=== PATIENT | female | born 1950 | race Caucasian/White ===

== ENCOUNTER → 2023-12-18 10:38 | Outpatient (REF) | payer OTHER, SELFPAY | LOC: DHCBC HW 10:38 | PROVIDERS: ATTENDING PHYSICIAN Internal Medicine Cardiovascular Disease; FAMILY PHYSICIAN Nurse Practitioner Adult Health | DX: I10 Essential (primary) hypertension (principal); I45.10 Unspecified right bundle-branch block | CPT/HCPCS: 93306 ==

== ENCOUNTER → 2024-02-20 07:23 | Outpatient (REF) | payer OTHER, SELFPAY | LOC: PAVMRI 07:23 | PROVIDERS: ATTENDING PHYSICIAN Nurse Practitioner Adult Health; FAMILY PHYSICIAN Nurse Practitioner Adult Health | DX: C7A.019 Malignant carcinoid tumor of the small intestine, unspecified portion (principal) | CPT/HCPCS: 74183; A9581 ==

== ENCOUNTER → 2024-03-14 10:09 | Outpatient (REF) | payer OTHER, SELFPAY | LOC: HWWDC 10:09 | PROVIDERS: ATTENDING PHYSICIAN Nurse Practitioner Adult Health | DX: Z12.31 Encounter for screening mammogram for malignant neoplasm of breast (principal) | CPT/HCPCS: 77063; 77067 ==

== ENCOUNTER 2024-03-23 17:17 | Inpatient (IN) | payer OTHER, SELFPAY ==
[2024-03-23 12:14] VITALS: BP 108/79
[2024-03-23 12:57] LABS: % Eosinophils 1.9 % (0-6); % Immature Granulocytes 1.7 % (0-0.5); % Lymphocytes 11.2 % (20.5-51.1); % Monocytes 12.2 % (1.7-9.3); Absolute Basophils 0.1 10^3/uL (0-0.2); Absolute Eosinophils 0.1 10^3/uL (0-0.7); Absolute Immature Granulocytes 0.1 10^3/uL (0-0.05); Absolute Lymphocytes 0.7 10^3/uL (1.2-3.4); Absolute Monocytes 0.7 10^3/uL (0.1-0.6); Absolute Neutrophils 4.2 10^3/uL (1.4-6.5); Hematocrit 21.6 % (37.0-47.0); Hemoglobin 7.2 g/dL (12.0-16.0); Mean Corp Hgb Conc. 33.3 g/dL (33.0-37.0); Mean Corpuscular Hgb 33.3 pg (27.0-31.0); Mean Platelet Volume 8.7 fL (7.4-10.4); Nucleated Red Blood Cells % 0 %; Platelet Count 300 10^3/uL (130-400); Red Blood Cell Count 2.16 10^6/uL (4.20-5.40); Red Cell Dist. Width 12.8 % (11.5-14.5); White Blood Cell Count 5.8 10^3/uL (4.8-10.8)
[2024-03-23 13:11] LABS: D-Dimer 3.07 ug/mlFEU (0.00-0.50)
[2024-03-23 13:12] LABS: Urine Albumin Trace (Neg - Trace); Urine Bilirubin 1+ (Negative); Urine Character Clear (Clear); Urine Color Amber; Urine Glucose Negative (Negative); Urine Ketone Trace (Negative); Urine Leukocyte 1+ (Negative); Urine Nitrite Negative (Negative); Urine Occult Blood Negative (Negative); Urine Specific Gravity 1.015 (<1.030); Urine Urobilinogen 1+ (Neg - 1+)
[2024-03-23 13:16] LABS: ALT (SGPT) 34 U/L (0-35); AST (SGOT) 65 U/L (14-36); Albumin 4.2 g/dl (3.5-5.0); Alkaline Phosphatase 61 U/L (38-126); Blood Urea Nitrogen 19 mg/dl (7-17); Carbon Dioxide 28 mmol/L (22-30); Chloride 98 mmol/L (98-107); Glucose 104 mg/dl (70-99); Potassium 4.3 mmol/L (3.5-5.1); Sodium 132 mmol/L (135-145); Total Bilirubin 2.1 mg/dl (0.2-1.3); Total Protein 6.6 g/dl (6.3-8.2); eGFR > 60.00
[2024-03-23 13:24] LABS: NT-proBNP 215 pg/ml; Troponin I 0.018 ng/ml
--- NOTE | 2024-03-23 13:44 | ED.GENMED ---
History of Present Illness
General
Chief Complaint: Urinary Symptoms
Time Seen by Provider: 03/23/24 12:31
Travel History
Have you had any contact with someone who has COVID-19?: No
Do you have any symptoms of coronavirus? Fever > 100 degrees, chills, cough, shortness of breath, sore throat, loss of taste or smell, muscle aches, or headache?: Yes
Symptoms:: SOB
History of Present Illness
History of Present Illness:
73-year-old female with history of metastatic neuroendocrine carcinoma presents the emergency department for evaluation of shortness of breath with exertion ongoing for the past 4 to 5 days. She is also noted dark urine for the past 3 to 4 days.
Reports mild suprapubic discomfort but denies any severe abdominal pain. No nausea, vomiting, dark tarry stools, or dennis colored stools. Denies any chest pain or leg swelling.
Past History
Past History
ED Past Medical History: Hypothyroidism and Other (migraines)
ED Past Surgical History: Orthopedic
Social History
Tobacco: Non-smoker
Personal:
Living: with family
Employment: Employed
Review of Systems
Review of Systems
Allergies reviewed?: Yes
All Other Systems: ROS reviewed and negative except as documented in HPI and ROS
Phy Exam
Physical Exam
Physical Exam:
GEN: Generally pale, no distress
Eyes: PERRLA, EOMs intact, no scleral icterus
HENT: NCAT, oral mucosa moist
Lungs: CTAB, no wheezes, rales, rhonchi, normal chest wall excursion
Cardiac: RRR, no M/R/G, no peripheral edema. Radial pulses 2+ bilat
Abdomen: S, NT, ND, NABS, no masses or hepatosplenomegaly
Neuro: AO x 3
MSK: No gross deformity or ecchymosis. No edema. No digital clubbing
Skin: No rashes, petechiae. No pallor, no jaundice
Psych: Calm, cooperative, proper hygiene
Course
Orders/Labs/Results
Orders:
Orders
03/23/24 12:42
Electrocardiogram (*1) Urgent
Reason for Study: Shortness of Breath
EKG- Treatment ONCE
CR Chest - 2 Views Urgent
Comment:
Reason For Exam: MCMANUS
03/23/24 12:45
Complete Blood Count/With Diff Urgent
Comprehensive Metabolic Panel Urgent
D-Dimer Urgent
Direct Bilirubin Urgent
Comment: ADD
Ferritin Urgent
Comment: ADD ON
Iron Urgent
NT-proBNP Urgent
PTT Urgent
Prothrombin Time Urgent
Comment: ADD
Total Iron Binding Urgent
Troponin I Urgent
03/23/24 13:01
Urinalysis Reflex To Culture Urgent
Date Specimen was Collected: 03/23/24
Time Specimen was Collected: 12:23
Urine Microscopic Reflex Cult Urgent
Urine Culture Urgent
MAEGAN Source: U
Specimen Description:
Date Specimen was Collected: 03/23/24
Time Specimen was Collected: 12:23
03/23/24 13:15
Type+Screen Urgent
03/23/24 13:26
Add On- LAB Urgent
Tests Added?: iron, TIBC, ferritin, transferrin
03/23/24 13:27
CT Pe/abd/pel W Urgent
Comment:
Reason For Exam: SOB, elevated D dimer, elevated T bili
03/23/24 13:44
Blood Bank Products [* Blood Bank Products] Urgent
Blood Bank Products: *Packed RBC Leuko(PRBC's)
Quantity: 1
Transfuse Today: Yes
Reason: Anemia
03/23/24 15:08
Add On- LAB Urgent
Tests Added?: direct bili
03/23/24 16:08
Add On- LAB Urgent
Tests Added?: pt/INR, ptt
03/23/24 16:18
Admit/Transfer Patient As Directed
Co-Sign Provider:
Level of Care: Inpatient admission
Assign to:: Medical/Surgical
Physician / Group: Dr Nolan
Diagnosis: Anemia
Reason for Hospitalization: pte p/w anemia, worsened from baseline
Expected length of stay greater than two midnights?: Yes
ELOS- Estimated Length of Stay in days: 2
I certify the patient meets the requirements for IP care: Yes
03/23/24 16:19
Code Status As Directed
Resuscitation Status: Full Code
03/23/24 16:20
HEMATOLOGY CONSULT Routine
Consulting Provider: Popeye Beltran
Was physician already notified: Yes
Reason for consult: Anemia eval
03/23/24 16:35
LDH Routine
03/23/24 16:36
Haptoglobin [S] Routine
03/23/24 16:38
B12 [Vitamin B12] Routine
Folate Routine
Reticulocyte Count Routine
03/23/24 18:00
H&H Q8H
03/24/24 02:00
H&H Q8H
03/24/24 06:00
LFT [[id number]] IN AM
Abnormal Lab Results
03/23/24 03/23/24 03/23/24
12:45 13:01 13:15
RBC 2.16 L 10^6/uL
(4.20-5.40)
Hgb 7.2 L g/dL
(12.0-16.0)
Hct 21.6 L %
(37.0-47.0)
MCV 100.0 H fL
(81.0-99.0)
MCH 33.3 H pg
(27.0-31.0)
Abs Immat Gran (auto) 0.1 H 10^3/uL
(0-0.05)
Absolute Lymphs (auto) 0.7 L 10^3/uL
(1.2-3.4)
Absolute Monos (auto) 0.7 H 10^3/uL
(0.1-0.6)
Immature Gran % 1.7 H %
(0-0.5)
Lymphocytes % 11.2 L %
(20.5-51.1)
Monocytes % 12.2 H %
(1.7-9.3)
D-Dimer 3.07 H ug/mlFEU
(0.00-0.50)
Sodium 132 L mmol/L
(135-145)
BUN 19 H mg/dl
(7-17)
Glucose 104 H mg/dl
(70-99)
% Saturation 53 H %
(20-50)
Ferritin 598.0 H ng/ml
(11.1-264.0)
Total Bilirubin 2.1 H mg/dl
(0.2-1.3)
Direct Bilirubin 0.6 H mg/dl
(0.0-0.4)
AST 65 H U/L
(14-36)
Urine Ketones Trace A
(Negative)
Urine Bilirubin 1+ A
(Negative)
Leukocyte Esterase Rfl 1+ A
(Negative)
Urine Bacteria (Reflex) Few A
(Negative)
Antibody Screen Positive A
(Negative)
03/23/24 12:45
03/23/24 12:45
Vital Signs
Initial and Last Documented VS:
Initial Vital Signs
Temp Pulse Resp BP Pulse Ox
98.1 F 94 18 108/79 96
03/23/24 12:14 03/23/24 12:14 03/23/24 12:14 03/23/24 12:14 03/23/24 12:14
Last Documented Vital Signs
Temp Pulse Resp BP Pulse Ox
98.1 F 78 18 100/63 100
03/23/24 12:14 03/23/24 17:33 03/23/24 17:33 03/23/24 17:33 03/23/24 17:33
MDM/Problems Addressed
MDM/Problems Addressed:
Patient with heme-negative stool on exam. Concern for likely hemolytic anemia given that his predominant direct she has associated hyperbilirubinemia. Would not expect her liver mass associated with her neuroendocrine cancer to be causing the
elevated bilirubin. Additionally she has noted to have numerous antibodies and will not be able to see the blood transfusion today. Will admit to the hospitalist service for further management hemoglobin trending
*Critical Care Note
Total Time (30-74mins, 75-104mins- exclusive of procedures): Not Applicable
ED Attending Note
-
Portions of this chart may have been created with voice recognition software.� Occasional wrong word or��sound alike� substitutions may have occurred due to the inherent limitations of voice recognition software.
Discharge Plan
Departure
Patient Disposition: Admit
Date of Disposition: 03/23/24
Time of Disposition: 16:11
Admit to: Med/Surg
Presentation/result/management discussed w/ accepting MD/DO: Hospitalist
Discharge Problem:
Symptomatic anemia, Hyperbilirubinemia
Interventions
Interventions:
*Risk Screen - Suicide Last Done: 03/23/24 12:20
*General Assessment Last Done: 03/23/24 12:14
*Neglect/Abuse Screening Last Done: 03/23/24 12:20
*ED COVID-19 Vaccine History Last Done: 03/23/24 12:14
ED-Female Genitourinary Assessment Last Done: 03/23/24 15:49
[2024-03-23 13:46] LABS: Urine Mucus Few
[2024-03-23 13:47] LABS: Urine Bacteria Few (Negative); Urine Red Blood Cell 0-2 /HPF (0-2); Urine White Cell 0-2 /HPF (0-5)
[2024-03-23 13:55] LABS: Total Iron Binding Capacity 300 ug/dl (265-497)
[2024-03-23 14:29] LABS: Iron 159 ug/dl (37-170); Percent Saturation 53 % (20-50)
[2024-03-23 15:49] VITALS: BMI 22.7
[2024-03-23 15:51] LABS: Direct Bilirubin 0.6 mg/dl (0.0-0.4)
--- NOTE | 2024-03-23 16:21 | HPS.HSE ---
Family Physician
-
Family Physician: Rosa Blackwood
Chief Complaint
-
Generalized weakness
History of Present Illness
Patient 73 years old female with history of hypothyroidism, migraine, metastatic neuroendocrine carcinoma presented to the hospital with generalized weakness and exertional dyspnea and found to have anemia. Patient had a recent viral upper
respiratory tract infection followed by generalized weakness, profound fatigue, dyspnea on exertion, and also noticed dark urine. She denies any chest pain. Denies any fever or chills. Denies any dysuria urgency or frequency. Denies abdominal
pain. She does have history of GI bleed in the past with no clear-cut etiology per patient report. At this time she denies any melena, hematemesis, hematochezia, or bright blood per rectum. Denies any new medications. She does follow-up as
outpatient with hematology oncology and she takes monthly shot for her neuroendocrine tumor and she took her medicine last month. In the ER, hemoglobin 7.2 MCV 100, last Hb was 11.8 back in 2017. Chest x-ray unremarkable for any acute
cardiopulmonary pathology, CT scan of the chest no evidence of PE, some pain, glass opacities nonspecific. CT scan of the abdomen and pelvis with contrast 3 lesions in the liver but no new lesions.
Medical History
Past Medical History
Past Medical History: Reports Other (Metastatic neuroendocrine tumor, rheumatoid Tritus, depression, osteoporosis, asthma, hypothyroidism, migraine, hypertension, depression.)
Past Surgical History: Reports Other (Hysterectomy, arthroscopy, small bowel resection in the past, cancerous liver tumors removed from the liver, tonsillectomy, left bunionectomy.)
Social History
Tobacco: Non-smoker
Alcohol: None
Drug: None
Family History
Family History: Not pertinent
Allergies / Home Medications
Allergies reflects when Allergies were last updated in [facility].
Home Medications with original date entered in [facility]
Allergy/Medication List:
Allergies
Allergy/AdvReac Type Severity Reaction Status Date / Time
seasonal Allergy nasal Uncoded 03/23/24 12:20
congestion
Home Medications
Calcium Citrate/Magnesium/D3 600 mg PO BID 05/03/17
Lactobacillus rhamnosus GG 15 billion cell sprinkle capsule (Culturelle) 1 ea PO DAILY 05/03/17
Losartan Potassium 50 mg PO DAILY 05/03/17
hydroxychloroquine 200 mg tablet 200 mg PO BID 05/03/17
sertraline 50 mg tablet 50 mg PO DAILY 05/03/17
ascorbic acid (vitamin C) 1,000 mg tablet (Vitamin C) 1,000 mg PO DAILY 03/23/24
cyanocobalamin (vitamin B-12) 1,000 mcg tablet (Vitamin B-12) 1,000 mcg PO DAILY 03/23/24
folic acid 1 mg tablet 1 mg PO DAILY 03/23/24
levothyroxine 137 mcg tablet 137 mcg PO DAILY 03/23/24
methotrexate sodium 2.5 mg tablet 17.5 mg PO TH 03/23/24
multivitamin 1 tab PO DAILY 03/23/24
Review of Systems
-
A 12 point ROS was completed and negative except as noted: Yes
Physical Exam
Vital Signs
Vital Signs
Temp Pulse Resp BP Pulse Ox
98.1 F 94 18 108/79 96
03/23/24 12:14 03/23/24 12:14 03/23/24 12:14 03/23/24 12:14 03/23/24 12:14
Physical exam:
General: Acutely ill
HEENT: Normocephalic, Atraumatic and Moist Mucous Membranes
Respiratory: Clear to Auscultation; Negative Wheezes, Rales or Rhonchi
Cardiac: Regular Rhythm and S1/S2
GI: Soft, Nontender and Nondistended. No hepatosplenomegaly
Musculoskeletal: No Clubbing, No Cyanosis and No Edema
Skin: No rash, no petechia or ecchymosis.
Neuro: Awake, Alert and Oriented
Psych: Calm
Physical Exam
General: Other
Laboratory Results
-
03/23/24 12:45
03/23/24 12:45
Laboratory Results
Total Bilirubin 2.1 mg/dl (0.2-1.3) H 03/23/24 12:45
AST 65 U/L (14-36) H 03/23/24 12:45
ALT 34 U/L (0-35) 03/23/24 12:45
Alkaline Phosphatase 61 U/L (38-126) 03/23/24 12:45
Troponin I 0.018 ng/ml 03/23/24 12:45
Impression/Plan
-
IMPRESSION:
Patient 73 years old female who came into the hospital with generalized weakness, dyspnea on exertion, and multiple other complaints likely related to symptomatic anemia. Very high in the differential possibility of hemolytic anemia due to recent
viral illness but needs to rule out other common etiologies as well. She also has neuroendocrine tumor. Patient is very high risk of increased morbidity mortality therefore she will need to be treated in the hospital accordingly and monitor for
toxicity.
Impression:
Symptomatic anemia, likely hemolytic anemia
Hyponatremia
Conditions prior to presentation:
Hypertension
Neuroendocrine metastatic tumor
Depression
Hypothyroidism
Rheumatoid arthritis
PLAN:
Consent for blood transfusion obtained in the ED.
Waiting for blood transfusion
Add LDH, reticulocyte count, haptoglobin current workup.
Hematology consult ([facility] texted hematology today)
Monitor hemoglobin closely
SCDs for DVT prophylaxis
CODE STATUS full code
Total time spent on today's encounter was 75 minutes which included time spent in counseling the patient/family regarding diagnosis and treatment plan as listed above, goals of care, and symptom management. Case was discussed with nursing staff,
specialists, and care coordinators/case management. All labs and imaging personally reviewed by me. Remainder the time spent in detailed review of previous records, lab data, imaging, and other medical provider documentation.
[2024-03-23 16:22] LABS: INR 1.06; PT 13.7 Sec (11.4-14.6)
[2024-03-23 16:23] LABS: APTT 23.4 Sec (23.4-35.0)
[2024-03-23 17:33] VITALS: BP 100/63
[2024-03-23 17:45] VITALS: BP 128/63; BMI 21.5
[2024-03-23 18:15] LABS: Hematocrit 19.1 % (37.0-47.0)
[2024-03-23 18:28] LABS: LDH 716 U/L (120-246)
[2024-03-23 18:34] LABS: Hemoglobin 6.6 g/dL (12.0-16.0)
[2024-03-23 18:53] LABS: Reticulocyte Count 4.2 % (0.4-2.8)
[2024-03-23 19:36] LABS: Folate > 20.0 ng/ml (2.76-20); Vitamin B12 790 pg/ml (239-931)
[2024-03-23] MEDS: OSCAL CAL 500 500 MG PO (21:00)
[2024-03-23] MEDS: COZAAR 100 MG PO (23:00)
[2024-03-24 00:09] VITALS: BP 113/63
[2024-03-24] MEDS: TYLENOL 650 MG PO (04:00)
[2024-03-24] MEDS: SYNTHROID 137 MCG PO (05:47)
[2024-03-24 06:00] VITALS: BMI 21.5
--- NOTE | 2024-03-24 06:09 | CON.ONC ---
Impression
Impression
Acute onset hemolytic anemia - Hgb drop of 7g since 03/06
Indirect Jefry positivity non-specific in pt with collagen vascular disease
No renal failure or thrombocytopenia to suggest TTP or other microangiopathic hemolysis such as TTP
Hydroxychloroquine has association with hemolysis in setting of G6PD def but she has been on this drug for some time without difficulty.
Plan
Plan
Please consult ID as infectious cause of hemolysis suspected.
Direct Jefry, EBV serologies, thin smear for babesiosis, mycoplasma serologies
Further w/u depending on outcome of direct Jefry.
Transfuse least incompatible blood.
Start empiric steroid.
Thank you for consult, will follow along with you.
Patient History
History of Present Illness
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 Roberts. She continues on monthly lanreotide, tolerating well. As of last visit, chromogranin A remained stable in the normal range at 40.1. MRI of the abdomen 02/20/24 c/w prior
liver ablation, two lesions c/w treated metastases. She also has a hsitory of RA managed with hydroxychloroquine and methotrexate, no recent disease flare, disease currently not too bad. Presented to ED 03/23/24 with generalized weakness and
exertional dyspnea and found to have anemia. Patient had a recent viral upper respiratory tract infection, which she reports she caught from her , followed by generalized weakness, profound fatigue, dyspnea on exertion, and also noticed dark
urine. She denies any chest pain. Denies any fever or chills. Denies any dysuria urgency or frequency. Denies abdominal pain. She does have history of GI bleed in the past with no clear-cut etiology per patient report. On admission she denied
any melena, hematemesis, hematochezia, or bright blood per rectum. In terms of new medications, she started Concerta about two months ago, was on it 1 month, then self D/C'd about three weeks ago since she felt it was interfering with her thyroid
function. Chest x-ray unremarkable for any acute cardiopulmonary pathology, CT scan of the chest no evidence of PE, ground glass opacities nonspecific. CT scan of the abdomen and pelvis with contrast showed few lesions in the liver but no new
lesions. In the ER, hemoglobin 6.6, MCV 100, compared with Hgb 13.2 on 03/06/24. Retic 4.2, Tbili 2.1, Dbili 0.6, LDH 716, haptoglobin pending. Indirect Jefry+.
Past-Medical/Surgical History
Past Medical History
Metastatic neuroendocrine tumor, rheumatoid arthritis, depression, osteoporosis, asthma, hypothyroidism, migraine, hypertension
Past Surgical History
Hysterectomy, arthroscopy, small bowel resection in the past, liver ablation for met carcinoid lesions, tonsillectomy, left bunionectomy
Social History
Tobacco: Non-smoker
Alcohol: None
Drug: None
Family History
Family History: Not pertinent
Patient Medication
�Medication �Instructions �Recorded �Confirmed �Last Taken �Type
Lactobacillus rhamnosus GG 15 1 ea PO DAILY 05/03/17 03/23/24 03/23/24 History
billion cell sprinkle capsule
(Culturelle)
calcium carbonate (Calcium 600) 600 mg PO BID ##0 05/03/17 03/23/24 03/23/24 History
hydroxychloroquine 200 mg tablet 200 mg PO DAILY 05/03/17 03/23/24 03/23/24 History
losartan 100 mg tablet 100 mg PO HS ##0 05/03/17 03/23/24 03/22/24 History
sertraline 50 mg tablet 50 mg PO DAILY 05/03/17 03/23/24 03/23/24 History
ascorbic acid (vitamin C) 1,000 mg 1,000 mg PO DAILY 03/23/24 03/23/24 03/23/24 History
tablet (Vitamin C)
cyanocobalamin (vitamin B-12) 1,000 mcg PO DAILY 03/23/24 03/23/24 03/23/24 History
1,000 mcg tablet (Vitamin B-12)
folic acid 1 mg tablet 1 mg PO DAILY 03/23/24 03/23/24 03/23/24 History
levothyroxine 137 mcg tablet 137 mcg PO DAILY 03/23/24 03/23/24 03/23/24 History
methotrexate sodium 2.5 mg tablet 17.5 mg PO TH 03/23/24 03/23/24 03/20/24 History
multivitamin 1 tab PO DAILY 03/23/24 03/23/24 03/23/24 History
Active Medications
Generic Name Dose Route Start Last Admin
Trade Name Freq PRN Reason Stop Dose Admin
Bisacodyl 10 mg 03/23/24 17:52
Bisacodyl 10 Mg Rectal Suppository RECTAL 04/20/24 17:51
[id number] PRN
constipation
Calcium Carbonate 500 mg 03/23/24 20:00 03/23/24 21:00
Calcium Carbonate 500 Mg Tablet PO 04/20/24 19:59 500 mg
BID GAB Administration
Cyanocobalamin 1,000 mcg 03/24/24 08:00
Cyanocobalamin 1,000 Mcg Tablet PO 04/21/24 07:59
DAILY GAB
Folic Acid 1 mg 03/24/24 08:00
Folic Acid 1 Mg Tablet PO 04/21/24 07:59
DAILY GAB
Hydroxychloroquine Sulfate 200 mg 03/24/24 08:00
Hydroxychloroquine 200 Mg Tablet PO 04/21/24 07:59
DAILY GAB
Lactobacillus/Bifidobacterium 1 cap 03/24/24 08:00
Lactobac/Bifidobac (Visbiome) PO 04/21/24 07:59
DAILY GAB
Levothyroxine Sodium 137 mcg 03/24/24 06:00 03/24/24 05:47
Levothyroxine 137 Mcg Tablet PO 04/21/24 05:59 137 mcg
DAILY@0600 GAB Administration
Losartan Potassium 100 mg 03/23/24 22:00 03/23/24 23:00
Losartan 100 Mg Tablet PO 04/20/24 21:59 100 mg
HS GAB Administration
Multivitamins Therapeutic 1 tablet 03/24/24 08:00
Multivitamin Tablet PO 04/21/24 07:59
DAILY GAB
Polyethylene Glycol 17 grams 03/23/24 17:52
Polyethylene Glycol Powder 17 Grams Packet PO 04/20/24 17:51
DAILYPRN PRN
constipation
Senna/Docusate Sodium 1 tablet 03/23/24 17:52
Docusate W/Senna (Rosaura-Colace) Tablet PO 04/20/24 17:51
BIDPRN PRN
constipation
Sertraline HCl 50 mg 03/24/24 08:00
Sertraline 50 Mg Tablet PO 04/21/24 07:59
DAILY GAB
Sodium Chloride 0 flush 03/23/24 20:00
Sodium Chloride 0.9% (Flush) Syringe IV 04/20/24 19:59
PER PROTOCOL GAB
Review of Systems
-
History Source: Patient and Records
All Other Systems: Reviewed and Negative
Constitutional: Reports No Symptoms
EENT: Reports No Symptoms
Respiratory: Reports No Symptoms
Cardiac: Reports No Symptoms
GI: Reports No Symptoms
Breast: Reports No Symptoms
: Reports No Symptoms
Musculoskeletal: Reports No Symptoms
Skin: Reports No Symptoms
Neuro: Reports No Symptoms
Endocrine: Reports No Symptoms
Hematologic/Lymphatic: Reports No Symptoms
Allergy / Immunology: Reports No Symptoms
Psych: Reports No Symptoms
Physical Exam
-
General: Well Developed and Well Nourished
HEENT: Jaundice and Moist Mucous Membranes
Cardiology: Normal Sinus Rhythm, S1 and S2
Pulmonary: Clear; Negative Wheezes or Rales
GI: Soft and Other (non-tender); Negative Spleenomegaly
Musculoskeletal: No Clubbing, No Cyanosis and No Edema
Extremities: No C/C/E
Neurology: Non Focal and No Lateralizing Symptoms
Skin: Warm and Dry; Negative Rash
Hematologic / Lymphatic: No Lymphadenopathy
Psych: Calm and Intact Judgement/Insight
Labs
Lab Results
WBC 5.8 10^3/uL (4.8-10.8) 03/23/24 12:45
RBC 2.16 10^6/uL (4.20-5.40) L 03/23/24 12:45
Hgb 6.6 g/dL (12.0-16.0) L* 03/23/24 18:03
Hct 19.1 % (37.0-47.0) L* 03/23/24 18:03
MCV 100.0 fL (81.0-99.0) H 03/23/24 12:45
MCH 33.3 pg (27.0-31.0) H 03/23/24 12:45
MCHC 33.3 g/dL (33.0-37.0) 03/23/24 12:45
RDW 12.8 % (11.5-14.5) 03/23/24 12:45
Plt Count 300 10^3/uL (130-400) 03/23/24 12:45
MPV 8.7 fL (7.4-10.4) 03/23/24 12:45
Abs Immat Gran (auto) 0.1 10^3/uL (0-0.05) H 03/23/24 12:45
Absolute Neuts (auto) 4.2 10^3/uL (1.4-6.5) 03/23/24 12:45
Absolute Lymphs (auto) 0.7 10^3/uL (1.2-3.4) L 03/23/24 12:45
Absolute Monos (auto) 0.7 10^3/uL (0.1-0.6) H 03/23/24 12:45
Absolute Eos (auto) 0.1 10^3/uL (0-0.7) 03/23/24 12:45
Absolute Basos (auto) 0.1 10^3/uL (0-0.2) 03/23/24 12:45
Immature Gran % 1.7 % (0-0.5) H 03/23/24 12:45
Neutrophils % 72.0 % (42.2-75.2) 03/23/24 12:45
Lymphocytes % 11.2 % (20.5-51.1) L 03/23/24 12:45
Monocytes % 12.2 % (1.7-9.3) H 03/23/24 12:45
Eosinophils % 1.9 % (0-6) 03/23/24 12:45
Basophils % 1.0 % (0-2) 03/23/24 12:45
Creatinine 0.6 mg/dL (0.6-1.0) 03/23/24 12:45
Vital Signs
Vital Signs
Temp Pulse Resp BP Pulse Ox
99.0 F 80 18 113/63 95
03/24/24 00:09 03/24/24 00:09 03/24/24 00:09 03/24/24 00:09 03/24/24 00:09
[2024-03-24 06:47] LABS: Mean Corp Hgb Conc. 33.5 g/dL (33.0-37.0); Mean Corpuscular Hgb 33.3 pg (27.0-31.0); Mean Corpuscular Volume 99.5 fL (81.0-99.0); Mean Platelet Volume 9.1 fL (7.4-10.4); Platelet Count 321 10^3/uL (130-400); Red Blood Cell Count 2.07 10^6/uL (4.20-5.40); Red Cell Dist. Width 12.6 % (11.5-14.5); White Blood Cell Count 6.9 10^3/uL (4.8-10.8)
[2024-03-24 06:59] LABS: Hematocrit 20.6 % (37.0-47.0); Hemoglobin 6.9 g/dL (12.0-16.0)
[2024-03-24 07:01] LABS: Hematocrit 20.5 % (37.0-47.0); Hemoglobin 6.9 g/dL (12.0-16.0)
[2024-03-24 07:02] LABS: ALT (SGPT) 29 U/L (0-35); AST (SGOT) 59 U/L (14-36); Albumin 4.4 g/dl (3.5-5.0); Alkaline Phosphatase 57 U/L (38-126); Blood Urea Nitrogen 15 mg/dl (7-17); Calcium 9.9 mg/dl (8.4-10.2); Carbon Dioxide 29 mmol/L (22-30); Chloride 99 mmol/L (98-107); Direct Bilirubin 0.7 mg/dl (0.0-0.4); Estimated Creatinine Clearance 51 ml/min; Glucose 119 mg/dl (70-99); Potassium 4.3 mmol/L (3.5-5.1); Sodium 135 mmol/L (135-145); Total Bilirubin 2.5 mg/dl (0.2-1.3); Total Protein 6.8 g/dl (6.3-8.2); eGFR > 60.00
[2024-03-24 07:30] VITALS: BP 117/61
[2024-03-24] MEDS: ZOLOFT 50 MG PO (08:29)
[2024-03-24] MEDS: THERAGRAN 1 TABLET PO (08:29)
[2024-03-24] MEDS: VISBIOME 1 CAP PO (08:29)
[2024-03-24] MEDS: FOLVITE 1 MG PO (08:29)
[2024-03-24] MEDS: PLAQUENIL 200 MG PO (08:29)
[2024-03-24] MEDS: VITAMIN B-12 1000 MCG PO (08:29)
[2024-03-24] MEDS: OSCAL CAL 500 500 MG PO ×2 (08:29→22:11)
--- NOTE | 2024-03-24 09:17 | W.PN.HOSP.TC ---
Today's Communication/Plan
-
Plan for blood transfusion. Monitor hemoglobin
Assessment / Plan
Assessment / Plan
Physical exam:
General: Acutely ill
HEENT: Normocephalic, Atraumatic and Moist Mucous Membranes
Respiratory: Clear to Auscultation; Negative Wheezes, Rales or Rhonchi
Cardiac: Regular Rhythm and S1/S2
GI: Soft, Nontender and Nondistended. No hepatosplenomegaly
Musculoskeletal: No Clubbing, No Cyanosis and No Edema
Skin: No rash, no petechia or ecchymosis.
Neuro: Awake, Alert and Oriented
Psych: Calm
A/P:
Impression:
Symptomatic anemia, likely hemolytic anemia
Hyponatremia, improved
Conditions prior to presentation:
Hypertension
Neuroendocrine metastatic tumor
Depression
Hypothyroidism
Rheumatoid arthritis
PLAN:
Consent for blood transfusion obtained in the ED.
Waiting for blood transfusion still today.
Added LDH, reticulocyte count, haptoglobin, Jefry test current workup. All test indicative of hemolytic anemia.
Hematology consult appreciated
Plan to start steroids by hematology
Monitor hemoglobin closely
SCDs for DVT prophylaxis
CODE STATUS full code
Anticipated Discharge: 24 - 48 hours
Subjective/Interval History
-
Date of Service: March 24, 2024
Patient with generalized weakness. Denies chest pain or shortness of breath. No bleeding
Objective Data
-
Labs:
Laboratory Results
03/24/24 03/24/24 03/24/24
05:59 05:59 05:59
WBC 6.9
Hgb 6.9 L* 6.9 L*
Hct 20.6 L* 20.5 L*
Plt Count 321
Sodium 135
Potassium 4.3
Chloride 99
Carbon Dioxide 29
BUN 15
Creatinine 0.7
Glucose 119 H
Calcium 9.9
Total Bilirubin 2.5 H
AST 59 H
ALT 29
Alkaline Phosphatase 57
Vital Signs:
Vital Signs
Temp Pulse Resp BP Pulse Ox
98.0 F 74 17 117/61 100
03/24/24 07:30 03/24/24 07:30 03/24/24 07:30 03/24/24 07:30 03/24/24 07:30
I&O
03/23/24 03/24/24 03/25/24
06:59 06:59 06:59
Intake Total 220 / 220
Balance 220 / 220
[2024-03-24] MEDS: MOTRIN 600 MG PO (09:42)
[2024-03-24] MEDS: DELTASONE 60 MG PO (09:43)
--- NOTE | 2024-03-24 11:44 | CM ---
Patient seen bedside, initial assessment completed. Patient resides with her , daughter, son in law, and two grandchildren in a multiple story home, 2 steps to enter. Patient denies DME, VN, or SNF history. Patient reports PCP Anne Amanda,
pharmacy [facility], confirms prescription coverage. Patient denies any food insecurities. CM will continue to follow for all discharge planning needs.
Plan; home no needs likely.
[2024-03-24 15:15] VITALS: BP 109/56
[2024-03-24] MEDS: COZAAR 100 MG PO (22:11)
[2024-03-24 22:32] VITALS: BP 114/60
[2024-03-24 22:50] VITALS: BP 120/71
[2024-03-25] VITALS (7 sets, daily range): BP systolic 121–130; BP diastolic 61–73; BMI 21.4
[2024-03-25 06:07] LABS: Mean Corp Hgb Conc. 34.5 g/dL (33.0-37.0); Mean Corpuscular Hgb 32.9 pg (27.0-31.0); Mean Corpuscular Volume 95.3 fL (81.0-99.0); Mean Platelet Volume 8.9 fL (7.4-10.4); Platelet Count 275 10^3/uL (130-400); Red Blood Cell Count 2.13 10^6/uL (4.20-5.40); Red Cell Dist. Width 14.4 % (11.5-14.5); White Blood Cell Count 9.6 10^3/uL (4.8-10.8)
[2024-03-25] MEDS: SYNTHROID 137 MCG PO (06:15)
[2024-03-25 06:22] LABS: Hematocrit 20.3 % (37.0-47.0)
[2024-03-25] MEDS: VISBIOME 1 CAP PO (08:25)
[2024-03-25] MEDS: OSCAL CAL 500 500 MG PO ×2 (08:25→20:41)
[2024-03-25] MEDS: PLAQUENIL 200 MG PO (08:25)
[2024-03-25] MEDS: THERAGRAN 1 TABLET PO (08:25)
[2024-03-25] MEDS: FOLVITE 1 MG PO (08:25)
[2024-03-25] MEDS: DELTASONE 60 MG PO (08:25)
[2024-03-25] MEDS: ZOLOFT 50 MG PO (08:26)
[2024-03-25] MEDS: VITAMIN B-12 1000 MCG PO (08:26)
--- NOTE | 2024-03-25 09:10 | W.PN.HOSP.TC ---
Today's Communication/Plan
-
Blood transfusion. ID eval by hematology requested.
Assessment / Plan
Assessment / Plan
Physical exam:
General: No acute distress
HEENT: Normocephalic, Atraumatic and Moist Mucous Membranes
Respiratory: Clear to Auscultation; Negative Wheezes, Rales or Rhonchi
Cardiac: Regular Rhythm and S1/S2
GI: Soft, Nontender and Nondistended. No hepatosplenomegaly
Musculoskeletal: No Clubbing, No Cyanosis and No Edema
Skin: No rash, no petechia or ecchymosis.
Neuro: Awake, Alert and Oriented
Psych: Calm
A/P:
Impression:
Warm autoimmune hemolytic anemia
Hyponatremia, improved
Conditions prior to presentation:
Hypertension
Neuroendocrine metastatic tumor
Depression
Hypothyroidism
Rheumatoid arthritis
PLAN:
Plan for more blood transfusion today (at least the least incompatible possible)
Status post blood transfusion and hemoglobin up to 7 today (hemoglobin as low as 6.6)
All tests indicative of hemolytic anemia. KAMILAH positive, C3 complement and IgG
Plan for flow cytometry
Hematology consult and follow-up appreciated
Initiated on steroids by hematology
Hematology requests ID consultation
Monitor hemoglobin closely
SCDs for DVT prophylaxis
CODE STATUS full code
Anticipated Discharge: Within 24 hours
Subjective/Interval History
-
Date of Service: March 25, 2024
Patient denies any melena hematemesis hematochezia or epistaxis. Denies any fevers or chills.
Objective Data
-
Labs:
Laboratory Results
03/25/24
05:11
WBC 9.6
Hgb 7.0 L
Hct 20.3 L*
Plt Count 275
Vital Signs:
Vital Signs
Temp Pulse Resp BP Pulse Ox
98.1 F 75 18 122/62 95
03/25/24 07:30 03/25/24 07:30 03/25/24 07:30 03/25/24 07:30 03/25/24 07:30
I&O
03/24/24 03/25/24 03/26/24
06:59 06:59 06:59
Intake Total 220 / 220 370 / 370
Balance 220 / 220 370 / 370
Review of Systems
-
All other systems: Reviewed and negative
--- NOTE | 2024-03-25 10:46 | W.PN.ONC ---
Today's Communication / Plan
-
continue steroids
PPI
Will check flow cytometry
Infectious work-up
Monitor CBC and CMP daily
transfuse as indicated
Impression
Impression
warm AIHA
Acute onset hemolytic anemia - Hgb drop of 7g since 03/06
KAMILAH positive (both IgG and C3)
No renal failure or thrombocytopenia to suggest TTP or other microangiopathic hemolysis such as TTP
Hydroxychloroquine has association with hemolysis in setting of G6PD def but she has been on this drug for some time without difficulty.
Plan
Plan
Continue steroids. Will give PPI for GI ppx
Continue folic acid
Will check flow cytometry
Please consult ID as infectious cause of hemolysis suspected
Pending - EBV serologies, thin smear for babesiosis, mycoplasma serologies
Transfuse least incompatible blood.
Subjective/Objective
Subjective/Objective
no complaints at rest
Vital Signs:
Vital Signs
Temp Pulse Resp BP Pulse Ox
98.1 F 75 18 122/62 95
03/25/24 07:30 03/25/24 07:30 03/25/24 07:30 03/25/24 07:30 03/25/24 08:35
Lab Results:
Laboratory Data
WBC 9.6 10^3/uL (4.8-10.8) 03/25/24 05:11
Hgb 7.0 g/dL (12.0-16.0) L 03/25/24 05:11
Plt Count 275 10^3/uL (130-400) 03/25/24 05:11
PT 13.7 Sec (11.4-14.6) 03/23/24 12:45
INR 1.06 03/23/24 12:45
APTT 23.4 Sec (23.4-35.0) 03/23/24 12:45
eGFR > 60.00 03/24/24 05:59
[2024-03-25] MEDS: PROTONIX 20 MG PO (11:15)
[2024-03-25 11:21] LABS: Haptoglobin <10 mg/dL (30-200)
[2024-03-25 13:49] LABS: EBV-NA IgG >600.0 U/mL (0.0-21.9); EBV-VCA IgM Antibodies <10.0 U/mL (0.0-43.9)
--- NOTE | 2024-03-25 16:43 | PTCARENOTE ---
Pt received 1 unit PRBC without difficulty. No reaction noted.
--- NOTE | 2024-03-25 16:55 | CON.ID ---
Consultation
-
Date/Time Consultation Requested: 03/25/2024 1320
Date/Time Consultation Performed: 03/25/2024 1620
Requesting Provider: Dr. Nolan
Performing Provider: Dr. Geiger
Reason for Consultation: Hemolytic anemia; ?Infectious etiology
Chief Complaint / Past History
History of Present Illness
Tj Jose is a 73-year-old female being evaluated at the request of Dr. Nolan in regards to hemolytic anemia and possible infectious etiology. History is obtained from chart review, along with patient interview.
The patient reports that she was in her usual state of health until early last week when she reports she developed a slight cold with associated slight cough (without sputum production), some rhinorrhea and some congestion. She notes that her
had a similar clinical syndrome several days before. Around this time she began to feel mild shortness of breath, but over the next several days it seemed to increase. Ultimately she presented to the emergency room secondary to fatigue and
shortness of breath, along with dark urine over the prior several days. She was found to have marked anemia.
She denies any recent fevers or chills. She denies any headache. She denies any abdominal pain, nausea, vomiting or diarrhea. She has not eaten out anywhere recently. She denies any tick bites. She has both a cat and dog, who are both noted to
be well. She has not had any travel outside the local area. She reports that she likes to perform yard work, but she has never seen a tick on her.
She denies any new medications. She notes no recent antibiotics.
Past History
Additional Past Medical History:
Metastatic neuroendocrine carcinoma
Hypothyroidism
Migraines
Rheumatoid arthritis
Depression
Osteoporosis
Asthma
HTN
Additional Past Surgical History:
Hysterectomy
Small bowel resection
Ambulation of met carcinoid hepatic lesions
Tonsillectomy
Left bunionectomy
Allergy History:
seasonal Allergy (Uncoded 03/23/24 12:20)
nasal congestion
Medications Reviewed: Yes
Current Antibiotics:
None
Social History
Tobacco: Non-Smoker
Alcohol: None
Drug: None
Personal:
Living: With Family
Employment: Retired
Family History
Family History: Not Pertinent
Review of Systems
Vital Signs
Temp Pulse Resp BP Pulse Ox
99.0 F 65 18 121/69 96
03/25/24 16:32 03/25/24 16:32 03/25/24 16:32 03/25/24 16:32 03/25/24 15:00
Physical Exam
Physical Exam
Constitutional: No Acute Distress, Comfortable and Non-toxic
Head: Normocephalic
Eyes: Pupils Equal, Pupils Round, No Conjunctival Hemorrhage and Sclera Anicteric
Pharynx: Benign
Oral: No Thrush and No Ulcers
Cardiovascular: S1/S2; Negative S3/S4 or Murmur
Pulmonary: Clear and Non Labored; Negative Wheezes, Rales or Rhonchi
Gastrointestinal: Soft, Non Tender, Non Distended, Normal Bowel Sounds, No Rebound and No Guarding
Extremities: Negative Edema, Cyanosis, Erythema, Splinter Hemorrhage or Venous Insufficiency
Neurological: Awake, Alert and Oriented
Psychological: Calm
Lab / Diagnostic Study Results
03/25/24 16:00
03/24/24 05:59
Abs Immat Gran (auto) 0.1 10^3/uL (0-0.05) H 03/23/24 12:45
Absolute Neuts (auto) 4.2 10^3/uL (1.4-6.5) 03/23/24 12:45
Absolute Lymphs (auto) 0.7 10^3/uL (1.2-3.4) L 03/23/24 12:45
Absolute Monos (auto) 0.7 10^3/uL (0.1-0.6) H 03/23/24 12:45
Absolute Basos (auto) 0.1 10^3/uL (0-0.2) 03/23/24 12:45
Immature Gran % 1.7 % (0-0.5) H 03/23/24 12:45
Neutrophils % 72.0 % (42.2-75.2) 03/23/24 12:45
Lymphocytes % 11.2 % (20.5-51.1) L 03/23/24 12:45
Monocytes % 12.2 % (1.7-9.3) H 03/23/24 12:45
Eosinophils % 1.9 % (0-6) 03/23/24 12:45
Basophils % 1.0 % (0-2) 03/23/24 12:45
PT 13.7 Sec (11.4-14.6) 03/23/24 12:45
INR 1.06 03/23/24 12:45
Ur Squamous Epith Cells 3-5 /LPF (Few) 03/23/24 13:01
Microbiology Results
Micro:
03/24/24 05:59 Blood Parasites Smear - Final
Blood/Venous
03/23/24 13:01 Urine Culture - Final
Urine
Assessment / Plan
Symptomatic hemolytic anemia of unclear etiology
Elevated total bilirubin and direct bilirubin
Elevated AST
Elevated LDH
Metastatic neuroendocrine carcinoma
Hypothyroidism
Migraines
Rheumatoid arthritis
Depression
Osteoporosis
Asthma
HTN
Recommendations:
Await pending mycoplasma serology, although if exposure is recent, both acute and convalescent serologies will need to be performed to establish the diagnosis.
Babesia / malaria smear negative.
No hx of travel making malaria, [place] fever and Cronin's disease (Bartinella bacilliformis) less likely.
Monitor for fever. At present, little evidence of acute infectious etiology requiring antibiotic therapy.
Trend white count. Trend hemoglobin.
[2024-03-25] MEDS: COZAAR 100 MG PO (20:41)
[2024-03-26 00:59] LABS: Mycoplasma pneumoniae IgG 1.21 U/L (<=0.09); Mycoplasma pneumoniae-IgM 0.17 U/L (<=0.76)
[2024-03-26] MEDS: SYNTHROID 137 MCG PO (05:06)
[2024-03-26 06:00] VITALS: BMI 21.8
[2024-03-26 07:00] VITALS: BP 137/74
--- NOTE | 2024-03-26 07:44 | W.PN.ONC2 ---
Today's Communication / Plan
-
Continue prednisone 60 mg daily with taper depending on response beginning after about 7 days.
Continue folic acid.
Once hemoglobin is >10, begin to taper prednisone by 10 mg weekly until she is weaned off.
I am comfortable with discharge and close outpatient follow-up.
Impression
Impression
warm AIHA
Acute onset hemolytic anemia - Hgb drop of 7g since 03/06
KAMILAH positive (both IgG and C3)
No renal failure or thrombocytopenia to suggest TTP or other microangiopathic hemolysis such as TTP
Hydroxychloroquine has association with hemolysis in setting of G6PD def but she has been on this drug for some time without difficulty.
Plan
Plan
Continue steroids + PPI for GI ppx
Continue folic acid.
Flow cytometry ordered.
Appreciate ID consultation. Currently no clear-cut classic infectious etiology but still could be viral.
Babesia / malaria smear negative.
Transfuse least incompatible blood for Hgb <7 PRN
Subjective/Objective
Chief Complaint
ACS Heme
Subjective
Patient feeling well. Offers no complaints. On oral steroids.
Vital Signs:
Vital Signs
Temp Pulse Resp BP Pulse Ox
98.3 F 65 16 121/61 98
03/25/24 23:10 03/25/24 23:10 03/25/24 23:10 03/25/24 23:10 03/25/24 23:10
Lab Results:
Laboratory Data
WBC 9.6 10^3/uL (4.8-10.8) 03/25/24 05:11
Hgb Cancelled 03/25/24 16:00
Plt Count 275 10^3/uL (130-400) 03/25/24 05:11
PT 13.7 Sec (11.4-14.6) 03/23/24 12:45
INR 1.06 03/23/24 12:45
APTT 23.4 Sec (23.4-35.0) 03/23/24 12:45
eGFR > 60.00 03/24/24 05:59
Physical Exam
HEENT: No Jaundice
Cardiology: S1 and S2
Pulmonary: Clear
GI: Soft
[2024-03-26] MEDS: OSCAL CAL 500 500 MG PO (08:10)
[2024-03-26] MEDS: FOLVITE 1 MG PO (08:10)
[2024-03-26] MEDS: DELTASONE 60 MG PO (08:10)
[2024-03-26] MEDS: THERAGRAN 1 TABLET PO (08:11)
[2024-03-26] MEDS: PLAQUENIL 200 MG PO (08:11)
[2024-03-26] MEDS: VITAMIN B-12 1000 MCG PO (08:11)
[2024-03-26] MEDS: ZOLOFT 50 MG PO (08:11)
[2024-03-26] MEDS: VISBIOME 1 CAP PO (08:11)
[2024-03-26] MEDS: PROTONIX 20 MG PO (08:11)
[2024-03-26 08:18] LABS: ALT (SGPT) 24 U/L (0-35); AST (SGOT) 35 U/L (14-36); Albumin 3.8 g/dl (3.5-5.0); Alkaline Phosphatase 54 U/L (38-126); Blood Urea Nitrogen 22 mg/dl (7-17); Carbon Dioxide 31 mmol/L (22-30); Chloride 100 mmol/L (98-107); Estimated Creatinine Clearance 51 ml/min; Glucose 90 mg/dl (70-99); Potassium 4.1 mmol/L (3.5-5.1); Sodium 136 mmol/L (135-145); Total Bilirubin 1.4 mg/dl (0.2-1.3); eGFR > 60.00
[2024-03-26 08:19] LABS: % Basophils 0.5 % (0-2); % Eosinophils 0.7 % (0-6); % Immature Granulocytes 4.7 % (0-0.5); % Lymphocytes 7.3 % (20.5-51.1); % Monocytes 10.8 % (1.7-9.3); Absolute Eosinophils 0.1 10^3/uL (0-0.7); Absolute Immature Granulocytes 0.4 10^3/uL (0-0.05); Absolute Lymphocytes 0.7 10^3/uL (1.2-3.4); Absolute Neutrophils 6.8 10^3/uL (1.4-6.5); Hematocrit 25.5 % (37.0-47.0); Mean Corp Hgb Conc. 35.3 g/dL (33.0-37.0); Mean Corpuscular Hgb 35.2 pg (27.0-31.0); Mean Corpuscular Volume 99.6 fL (81.0-99.0); Mean Platelet Volume 8.8 fL (7.4-10.4); Platelet Count 259 10^3/uL (130-400); Red Blood Cell Count 2.56 10^6/uL (4.20-5.40); Red Cell Dist. Width 16.9 % (11.5-14.5); White Blood Cell Count 8.9 10^3/uL (4.8-10.8)
--- NOTE | 2024-03-26 08:40 | W.PN.HOSP.TC ---
Today's Communication/Plan
-
Discharge planning today
Assessment / Plan
Assessment / Plan
Physical exam:
General: No acute distress
HEENT: Normocephalic, Atraumatic and Moist Mucous Membranes
Respiratory: Clear to Auscultation; Negative Wheezes, Rales or Rhonchi
Cardiac: Regular Rhythm and S1/S2
GI: Soft, Nontender and Nondistended. No hepatosplenomegaly
Musculoskeletal: No Clubbing, No Cyanosis and No Edema
Skin: No rash, no petechia or ecchymosis.
Neuro: Awake, Alert and Oriented
Psych: Calm
A/P:
Impression:
Warm autoimmune hemolytic anemia
Hyponatremia, improved
Conditions prior to presentation:
Hypertension
Neuroendocrine metastatic tumor
Depression
Hypothyroidism
Rheumatoid arthritis
PLAN:
Hemoglobin up to 9 today
Hotel Assistant General Manager cleared her for discharge today.
Status post blood transfusion
All tests indicative of hemolytic anemia. KAMILAH positive, C3 complement and IgG
Flow cytometry pending.
Hematology consult and follow-up appreciated
Initiated on steroids by hematology
Hematology requested ID consultation and appreciated ID input.
Monitor hemoglobin closely
SCDs for DVT prophylaxis
CODE STATUS full code
Anticipated Discharge: Today
Subjective/Interval History
-
Date of Service: March 26, 2024
Patient feels well today.
Objective Data
-
Labs:
Laboratory Results
03/26/24
07:10
WBC 8.9
Hgb 9.0 L D
Hct 25.5 L
Plt Count 259
Sodium 136
Potassium 4.1
Chloride 100
Carbon Dioxide 31 H
BUN 22 H
Creatinine 0.7
Glucose 90
Calcium 9.0
Total Bilirubin 1.4 H D
AST 35
ALT 24
Alkaline Phosphatase 54
Vital Signs:
Vital Signs
Temp Pulse Resp BP Pulse Ox
98.1 F 62 18 137/74 97
03/26/24 07:00 03/26/24 07:00 03/26/24 07:00 03/26/24 07:00 03/26/24 07:00
I&O
03/25/24 03/26/24 03/27/24
06:59 06:59 06:59
Intake Total 370 / 370 1160 / 1160
Balance 370 / 370 1160 / 1160
--- NOTE | 2024-03-26 10:09 | W.PN.ID1 ---
Date of Service
Date of Service: March 26, 2024
Today's Communication
Monitor off antibiotics.
Assessment / Plan
Symptomatic hemolytic anemia of unclear etiology
Elevated total bilirubin and direct bilirubin
Elevated AST
Elevated LDH
Metastatic neuroendocrine carcinoma
Hypothyroidism
Migraines
Rheumatoid arthritis
Depression
Osteoporosis
Asthma
HTN
Recommendations:
Mycoplasma and EBV serology consistent with old disease
Babesia / malaria smear negative.
No hx of travel making malaria, [place] fever and Cronin's disease (Bartinella bacilliformis) less likely.
Monitor for fever. At present, little evidence of acute infectious etiology requiring antibiotic therapy.
Trend white count. Trend hemoglobin.
����������������������������������������������������������
Chief Complaint
-: Other (Hemolytic anemia)
Subjective / Review of Systems
Patient seen and examined. Overall feels well. Reports that she recalls starting a new probiotic approximately 2 weeks prior to the onset of symptomatology.
Review of Systems: No Fever and No Chills
Vital Signs / Physical Exam
Vital Signs
Vital Signs
Temp Pulse Resp BP Pulse Ox
98.1 F 62 18 137/74 97
03/26/24 07:00 03/26/24 07:00 03/26/24 07:00 03/26/24 07:00 03/26/24 07:00
Physical Exam
Constitutional: No Acute Distress, Comfortable and Non-toxic
Eyes: Sclera Anicteric
Cardiovascular: S1/S2; Negative S3/S4
Pulmonary: Non Labored
Gastrointestinal: Soft, Non Tender and Non Distended
Neurological: Awake and Alert
Psychological: Calm
Objective Data
Lab Data
Lab Results
03/26/24 07:10
03/26/24 07:10
PT 13.7 Sec (11.4-14.6) 03/23/24 12:45
INR 1.06 03/23/24 12:45
APTT 23.4 Sec (23.4-35.0) 03/23/24 12:45
Estimated Creat Clear 51 ml/min 03/26/24 07:10
Total Bilirubin 1.4 mg/dl (0.2-1.3) H D 03/26/24 07:10
AST 35 U/L (14-36) 03/26/24 07:10
ALT 24 U/L (0-35) 03/26/24 07:10
Alkaline Phosphatase 54 U/L (38-126) 03/26/24 07:10
Most recent labs reviewed.
Micro Results:
03/24/24 05:59 Blood Parasites Smear - Negative
Blood/Venous
03/23/24 13:01 Urine Culture - Final
Urine
Mycoplasma : IgG positive / IgM negative
EBV : capsid antigen IgG positive / capsid antigen IgM negative
Nuclear antigen IgG positive/nuclear antigen IgM negative
Care Review
Plan reviewed with: Nurse and Physician (Hospitalist)
--- NOTE | 2024-03-26 10:34 | CM ---
Patient seen beside, reports no needs to CM. IMM reviewed, signed, placed in chart. Patient reports she has a lot of support at home, has transportation home when stable. CM will continue to follow for discharge planning needs.
Plan; home no needs when stable.
--- NOTE | 2024-03-26 12:22 | W.DCSUMMARY ---
Discharge Summary
Discharge Data
Date of Admission: 03/23/24
Date of Discharge: 03/26/24
-
Pending Results: No
Hospital Course
Patient is 73 years old female with history of metastatic neuroendocrine tumor, rheumatoid arthritis, presented to the hospital with severe anemia. Patient had a workup of her anemia and reveals warm or immune hemolytic anemia. She was treated
with blood transfusions and she was started on steroids. Her KAMILAH was positive both IgG and C3. Hematology consulted. She was also noticed to be on hydrochloroquine that hematology noticed that she has been on this medication for quite some time
and usually hemolysis in the settings are associated with G6PD deficiency which does not appear to be the case. She also had some flow cytometry that will be follow-up as outpatient. ID was consulted and no current infectious etiology was found
although very suspicion for a viral syndrome triggered this event. Her mycoplasma and EBV serology consistent with all disease and Babesia and malaria smears were negative. Hematology cleared her for discharge today. Her hemoglobin up to 9 today.
She will be continued on steroids as outpatient and further dosing and adjustment per hematology. She will be discharged in stable condition today.
Discharge duration: 35 minutes
Discharge Plan
-
Patient Disposition: Home (Routine Discharge)
Discharge Diagnosis/Procedures: Warm autoimmune hemolytic anemia. Rheumatoid arthritis. Metastatic neuroendocrine tumor.
Diet: Low Cholesterol
Activity: As tolerated
Blood Work: Please PCP to order CBC, CMP within 1 week
Referrals:
Computer Sciences Professor, provider [Other] (Please see over the next 2 to 4 weeks)
Rosa Blackwood DO [Family Provider] - in less than 1 week
Dylon Alegria MD [Active] - in one to two weeks
Prescriptions:
New
prednisone 20 mg tablet
60 mg PO DAILY Qty: 50 0RF
Rx Instructions:
60 mg p.o. daily for 7 days. Then 40 mg p.o. daily for 7 days. Then 20 mg daily for 7 days.
pantoprazole [Protonix] 40 mg tablet,delayed release (DR/EC)
40 mg PO DAILY Qty: 30 0RF
Continued
calcium carbonate [Calcium 600] 600 mg calcium (1,500 mg) Tablet
600 mg PO BID Qty: 0
hydroxychloroquine 200 MG tablet
200 mg PO DAILY
losartan 100 mg Tablet
100 mg PO HS Qty: 0
sertraline 50 MG tablet
50 mg PO DAILY
Culturelle 1 EACH capsule, sprinkle
1 ea PO DAILY
multivitamin Tablet
1 tab PO DAILY
levothyroxine 137 mcg Tablet
137 mcg PO DAILY
ascorbic acid (vitamin C) [Vitamin C] 1,000 mg Tablet
1,000 mg PO DAILY
cyanocobalamin (vitamin B-12) [Vitamin B-12] 1,000 mcg Tablet
1,000 mcg PO DAILY
methotrexate sodium 2.5 mg Tablet
17.5 mg PO TH
folic acid 1 mg Tablet
1 mg PO DAILY
Discharge Orders:
Discharge Patient (As Directed); Ordered 03/26/24
Ordered By: Roshan Nolan
Discharge Date and Time
Discharge Date/Time: 03/26/24 13:32
Print Language: LAO
[2024-03-26 12:53] VITALS: BP 122/51
[2024-03-28 06:36] LABS: Number Of Markers 26 markers; Source Blood
== END 2024-03-26 13:32 | disposition home or self-care (01) | DRG 809 ==
LOC: 4 WEST ACU 17:17
PROVIDERS: Internal Medicine Hematology & Oncology; Physician Assistant; ADMITTING PHYSICIAN Hospitalist; CONSULT PHYSICIAN Internal Medicine Hematology & Oncology; CONSULT PHYSICIAN Internal Medicine Infectious Disease; EMERGENCY PHYSICIAN Emergency Medicine; FAMILY PHYSICIAN Family Medicine
PROC: 30233N1 Transfusion of Nonautologous Red Blood Cells into Peripheral Vein, Percutaneous Approach (ICD-10-PCS; 2024-03-24)
DX: D59.11 Warm autoimmune hemolytic anemia (principal); C7A.8 Other malignant neuroendocrine tumors; C7B.8 Other secondary neuroendocrine tumors; E87.1 Hypo-osmolality and hyponatremia; M06.9 Rheumatoid arthritis, unspecified; E03.9 Hypothyroidism, unspecified; I10 Essential (primary) hypertension; M81.0 Age-related osteoporosis without current pathological fracture; J45.909 Unspecified asthma, uncomplicated; F32.A Depression, unspecified
CPT/HCPCS: 71046; 71275; 74177; 80053; 81003; 81015; 82248; 82607; 82728; 82746; 83010; 83540; 83550; 83615; 83880; 84484; 85014; 85018; 85025; 85027; 85045; 85379; 85610; 85730; 86663; 86664; 86665; 86738; 86850; 86870; 86900; 86901; 86920; 86922; 87015; 87086; 87207; 93005; 99285; P9016; Q9967

== ENCOUNTER → 2024-07-29 11:36 | Outpatient (REF) | payer OTHER, SELFPAY ==
[2024-07-29 12:04] LABS: % Eosinophils 6.3 % (0-6); % Immature Granulocytes 1.6 % (0-0.5); % Lymphocytes 22.4 % (20.5-51.1); % Monocytes 18.8 % (1.7-9.3); % Neutrophils 48.9 % (42.2-75.2); Absolute Basophils 0.1 10^3/uL (0-0.2); Absolute Eosinophils 0.2 10^3/uL (0-0.7); Absolute Lymphocytes 0.6 10^3/uL (1.2-3.4); Absolute Monocytes 0.5 10^3/uL (0.1-0.6); Absolute Neutrophils 1.3 10^3/uL (1.4-6.5); Hematocrit 40.4 % (37.0-47.0); Hemoglobin 13.6 g/dL (12.0-16.0); Mean Corp Hgb Conc. 33.7 g/dL (33.0-37.0); Mean Corpuscular Hgb 30.6 pg (27.0-31.0); Mean Platelet Volume 8.3 fL (7.4-10.4); Platelet Count 263 10^3/uL (130-400); Red Blood Cell Count 4.44 10^6/uL (4.20-5.40); Red Cell Dist. Width 12.3 % (11.5-14.5); White Blood Cell Count 2.6 10^3/uL (4.8-10.8)
== END ==
LOC: OIDL 11:36
PROVIDERS: ATTENDING PHYSICIAN Internal Medicine Hematology & Oncology
DX: C7A.019 Malignant carcinoid tumor of the small intestine, unspecified portion (principal)
CPT/HCPCS: 36415; 85025

== ENCOUNTER → 2024-09-18 06:17 | Day surgery (SDC) | payer OTHER, SELFPAY | LOC: GI 06:17 | PROVIDERS: ATTENDING PHYSICIAN Internal Medicine Gastroenterology | DX: R13.14 Dysphagia, pharyngoesophageal phase (principal); R12 Heartburn; K44.9 Diaphragmatic hernia without obstruction or gangrene; K31.7 Polyp of stomach and duodenum | CPT/HCPCS: 43239; 88305 ==

== ENCOUNTER → 2024-10-24 08:31 | Outpatient (REF) | payer OTHER, SELFPAY | LOC: RAD 08:31 | PROVIDERS: ATTENDING PHYSICIAN Internal Medicine Gastroenterology | DX: R13.12 Dysphagia, oropharyngeal phase (principal); R13.19 Other dysphagia | CPT/HCPCS: 74221 ==

== ENCOUNTER → 2024-12-02 12:32 | Outpatient (REF) | payer OTHER, SELFPAY | LOC: RAD 12:32 | PROVIDERS: ATTENDING PHYSICIAN Internal Medicine Hematology & Oncology; FAMILY PHYSICIAN Internal Medicine | DX: C7A.019 Malignant carcinoid tumor of the small intestine, unspecified portion (principal) | CPT/HCPCS: 71260; 74177; Q9967 ==

== ENCOUNTER → 2024-12-24 07:12 | Outpatient (REF) | payer OTHER, SELFPAY | LOC: RAD 07:12 | PROVIDERS: ATTENDING PHYSICIAN Internal Medicine Endocrinology, Diabetes & Metabolism; FAMILY PHYSICIAN Nurse Practitioner Adult Health | DX: E04.2 Nontoxic multinodular goiter (principal) | CPT/HCPCS: 76536 ==

== ENCOUNTER → 2025-03-18 10:27 | Outpatient (REF) | payer OTHER, SELFPAY | LOC: HWWDC 10:27 | PROVIDERS: ATTENDING PHYSICIAN Nurse Practitioner Adult Health | DX: Z12.31 Encounter for screening mammogram for malignant neoplasm of breast (principal) | CPT/HCPCS: 77063; 77067 ==

== ENCOUNTER → 2025-03-31 09:29 | Outpatient (REF) | payer OTHER, SELFPAY | LOC: WDC 09:29 | PROVIDERS: ATTENDING PHYSICIAN Nurse Practitioner Adult Health | PROC: 0KX Muscles, Transfer (ICD-10-PCS; ~2025-03-31) | PROC: 0KXF0Z7 Transfer Right Trunk Muscle, Deep Inferior Epigastric Artery Perforator Flap, Open Approach (ICD-10-PCS; ~2025-03-31) | PROC: BH01ZZZ Plain Radiography of Left Breast (ICD-10-PCS; ~2025-03-31) | PROC: 0HBV0ZZ Excision of Bilateral Breast, Open Approach (ICD-10-PCS; ~2025-03-31) | DX: R92.8 Other abnormal and inconclusive findings on diagnostic imaging of breast (principal) | CPT/HCPCS: 77066; 77062 ==

== ENCOUNTER → 2025-06-04 08:57 | Outpatient (REF) | payer OTHER, SELFPAY | LOC: HWRAD 08:57 | PROVIDERS: FAMILY PHYSICIAN Nurse Practitioner Adult Health | DX: J32.9 Chronic sinusitis, unspecified (principal); R05.3 Chronic cough; R50.9 Fever, unspecified | CPT/HCPCS: 71046 ==

== ENCOUNTER 2025-06-23 15:11 | Inpatient (IN) | payer OTHER, SELFPAY ==
[2025-06-23] VITALS (13 sets, daily range): BP systolic 100–143; BP diastolic 40–110; BMI 21.3
--- NOTE | 2025-06-23 09:54 | ED.GENMED ---
History of Present Illness
General
Chief Complaint: Fever
Time Seen by Provider: 06/23/25 09:32
Nursing documentation reviewed up to this point in time: agreed with
History of Present Illness
History of Present Illness:
74-year-old female presents to the ER for evaluation of fever. Patient states that the fever started 2 days ago. She has been feeling more confused. She completed a long taper of prednisone 2 days ago. She had been on antibiotics prior to the
prednisone for treatment of a cough. She reports that the cough has been persistent and not improved despite taking steroids as prescribed. She has been eating and drinking. She states that last night she also was incontinent of urine, but this
morning was able to urinate without any difficulty. She denies dysuria. She denies pain in her belly. She denies headache. She denies any syncope or trauma. She is not on any blood thinners. 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
small intestine status post resection in 2017 with known liver mets managed with monthly lanreotide. She says she is been eating and drinking without difficulty but she does report a mild sore throat today. She denies any vomiting or diarrhea.
She denies specific sick contacts.
Patient does have additional significant prior medical history including autoimmune hemolytic anemia, hypertension, chronic neck pain, right bundle branch block and prior Lyme disease in 2016
Past History
Past History
ED Past Medical History: Hypothyroidism and Other (migraines)
ED Past Surgical History: Orthopedic
Social History
Tobacco: Non-smoker
Personal:
Living: with family
Employment: Employed
Review of Systems
Review of Systems
Allergies reviewed?: Yes
Phy Exam
Physical Exam
Physical Exam:
Patient is awake, alert, elderly, appears in no acute distress, ambulating in the department the steady gait and no assistance, head is normocephalic atraumatic, PERRL, no photophobia, mucous membranes moist, posterior pharynx appears clear without
exudates, edema or erythema heart regular rate and rhythm without murmurs or ectopy, lungs are clear to auscultation without wheezes rales or rhonchi but dry cough is provoked with deep inspiration, abdomen is soft and nontender, extremities without
edema,, 2+ DP pulses present symmetric bilateral feet GCS is 15, no rash noted
Sepsis
Sepsis Screening
Sepsis Assessment: Sepsis
Sepsis Screen
Sepsis Screen: Sepsis
Date: 06/23/25
Time: 12:53
Course
Orders/Labs/Results
Orders:
Orders
06/23/25 09:40
0.9% Sodium Chloride 1000 ml [Nss] 1,000 ml IV BOLUS
Pulse Ox/cont/shift [RESP] Urgent
Quantity: 1
06/23/25 09:41
Electrocardiogram (*1) Urgent
Reason for Study: Other
Other Reason for Exam: sepsis
EKG- Treatment ONCE
06/23/25 09:43
CT Chest PE Study Urgent
Comment:
Reason For Exam: fever, cough, h/o liver CA
06/23/25 09:44
Acetaminophen [Tylenol] 1,000 mg PO NOW STA
06/23/25 09:49
Albuterol [ProAIR HFA INHALER] 6 puff INH R NOW STA
06/23/25 09:54
CT Head W/o Iv Contrast Urgent
Comment:
Reason For Exam: confusion
06/23/25 10:15
Blood Culture Q30M
MAEGAN Source: Blood/Venous
Specimen Description:
06/23/25 10:18
COVID-19 Antigen Urgent
Source: Nasal Swab
Complete Blood Count/With Diff Urgent
Comprehensive Metabolic Panel Urgent
Lactic Acid Q4H
Comment: CANCEL 2nd LACTIC ACID IF 1st LACTIC ACID IS LESS THAN 2
Prothrombin Time Urgent
Urinalysis Reflex To Culture Urgent
Date Specimen was Collected: 06/23/25
Time Specimen was Collected: 09:46
Urine Microscopic Reflex Cult Urgent
Blood Culture Q30M
MAEGAN Source: Blood/Venous
Specimen Description:
Influenza A+B Rapid Molecular Urgent
MAEGAN Source: Nasal Swab
Specimen Description:
Urine Culture Urgent
MAEGAN Source: U
Specimen Description:
Date Specimen was Collected: 06/23/25
Time Specimen was Collected: 09:46
06/23/25 12:14
CefTRIAXone [Rocephin] 1,000 mg IV NOW STA
06/23/25 13:45
Lactic Acid Q4H
Comment: CANCEL 2nd LACTIC ACID IF 1st LACTIC ACID IS LESS THAN 2
Abnormal Lab Results
06/23/25
10:18
WBC 22.5 H 10^3/uL
(4.8-10.8)
Abs Immat Gran (auto) 0.2 H 10^3/uL
(0-0.05)
Absolute Neuts (auto) 18.5 H 10^3/uL
(1.4-6.5)
Absolute Lymphs (auto) 0.6 L 10^3/uL
(1.2-3.4)
Absolute Monos (auto) 3.1 H 10^3/uL
(0.1-0.6)
Immature Gran % 1.0 H %
(0-0.5)
Neutrophils % 82.2 H %
(42.2-75.2)
Lymphocytes % 2.6 L %
(20.5-51.1)
Monocytes % 13.8 H %
(1.7-9.3)
Sodium 133 L mmol/L
(135-145)
Chloride 97 L mmol/L
(98-107)
Glucose 140 H mg/dl
(70-99)
Ur Occult Blood Reflex 2+ A
(Negative)
Urine Nitrite (Reflex) Positive A
(Negative)
Leukocyte Esterase Rfl 1+ A
(Negative)
Urine WBC (Reflex) 16-20 A /HPF
(0-5)
Urine Bacteria (Reflex) Many A
(Negative)
Urine Albumin (Reflex) 2+ A
(Neg - Trace)
06/23/25 10:18
06/23/25 10:18
White blood count significantly elevated at 22. Kidney function preserved. COVID and flu negative. UA consistent with urinary tract infection. Lactate negative
Vital Signs
Initial and Last Documented VS:
Initial Vital Signs
Temp Pulse Resp BP Pulse Ox
101.2 F H 104 18 143/77 96
06/23/25 09:10 06/23/25 09:10 06/23/25 09:10 06/23/25 09:10 06/23/25 09:10
Last Documented Vital Signs
Temp Pulse Resp BP Pulse Ox
98.2 F 104 18 126/57 93
06/23/25 11:52 06/23/25 09:10 06/23/25 09:10 06/23/25 11:00 06/23/25 11:30
MDM/Problems Addressed
Differential Diagnosis Includes:
Differential diagnosis considered but not limited to viral syndrome, COVID, flu, pneumonia, pulmonary embolism along with other etiologies considered
Chronic conditions affecting care:
Known liver metastatic disease from prior neuroendocrine tumor, history of hemolytic anemia, recent steroid use
*Radiology
Radiology exam reviewed: radiology read reviewed (I reviewed radiology interpretation of CT head and CT chest-no acute process)
*Pulse Oximetry
SaO2: 96
Oxygen Mode of Delivery: Room air
Patient hypoxic: no
*EKG
Interpreted by ED Provider?: Yes (I independently viewed and interpreted twelve-lead EKG showing normal sinus rhythm, rate 76, left axis deviation, right bundle branch block, no ST elevation, this is an abnormal tracing without change compared to
prior from 03/23/2024)
*Accordion Maker Interpretation
Rate: normal (I independently viewed and interpreted rhythm strip showing normal sinus rhythm, right bundle branch block, no ectopy)
*Critical Care Note
Total Time (30-74mins, 75-104mins- exclusive of procedures): Not Applicable
Data Reviewed
Review of Other/Old Records Reveals: Records (I reviewed H&P/progress note from Dr Tee dated 09/02/2024 which was related to dysphagia with plan for EGD for further assessment. I reviewed medication list and medical history and this note which
was very thorough)
Update Note
Update Note:
White blood count elevated at 22. Urinalysis is consistent with infection. IV Rocephin ordered. Awaiting CT head and CT chest
1245: I updated patient with all test results including presence of urinary tract infection as likely etiology of fever and delirium. She feels comfortable with plan for admission for further treatment with IV antibiotics. I reviewed full patient
presentation with hospitalist who accepts patient for admission
ED Attending Note
-
Portions of this chart may have been created with voice recognition software.� Occasional wrong word or��sound alike� substitutions may have occurred due to the inherent limitations of voice recognition software.
Discharge Plan
Departure
Patient Disposition: Admit
Date of Disposition: 06/23/25
Time of Disposition: 12:52
Presentation/result/management discussed w/ accepting MD/DO: Hospitalist
Discharge Problem:
Urinary tract infection, Acute delirium
Prescriptions:
No Action
calcium carbonate [Calcium 600] 600 mg calcium (1,500 mg) Tablet
600 mg PO BID Qty: 0
hydroxychloroquine 200 MG tablet
200 mg PO DAILY
losartan 100 mg Tablet
100 mg PO HS Qty: 0
sertraline 50 MG tablet
50 mg PO DAILY
Culturelle 1 EACH capsule, sprinkle
1 ea PO DAILY
multivitamin Tablet
1 tab PO DAILY
levothyroxine 137 mcg Tablet
137 mcg PO DAILY
ascorbic acid (vitamin C) [Vitamin C] 1,000 mg Tablet
1,000 mg PO DAILY
cyanocobalamin (vitamin B-12) [Vitamin B-12] 1,000 mcg Tablet
1,000 mcg PO DAILY
methotrexate sodium 2.5 mg Tablet
17.5 mg PO TH
folic acid 1 mg Tablet
1 mg PO DAILY
prednisone 20 mg tablet
60 mg PO DAILY Qty: 50 0RF
Rx Instructions:
60 mg p.o. daily for 7 days. Then 40 mg p.o. daily for 7 days. Then 20 mg daily for 7 days.
pantoprazole [Protonix] 40 mg tablet,delayed release (DR/EC)
40 mg PO DAILY Qty: 30 0RF
Referrals:
UNKNOWN - PT DOES,NOT KNOW [Family Provider]
Interventions
Interventions:
*Risk Screen - Suicide Last Done: 06/23/25 09:10
*General Assessment Last Done: 06/23/25 09:10
*Neglect/Abuse Screening Last Done: 06/23/25 09:10
Discharge Date and Time
Print Language: SLOVAK
[2025-06-23] MEDS: TYLENOL 1000 MG PO (10:50)
[2025-06-23] MEDS: NSS 1000 IV (10:50)
[2025-06-23 11:01] LABS: Urine Character Clear (Clear)
[2025-06-23 11:02] LABS: Hematocrit 40.1 % (37.0-47.0); Hemoglobin 13.6 g/dL (12.0-16.0); Mean Corp Hgb Conc. 33.9 g/dL (33.0-37.0); Mean Corpuscular Volume 90.9 fL (81.0-99.0); Nucleated Red Blood Cells % 0 %; Platelet Count 241 10^3/uL (130-400); Red Cell Dist. Width 13.3 % (11.5-14.5)
[2025-06-23 11:10] LABS: Urine Red Blood Cell 0-2 /HPF (0-2); Urine Squamous Cell 0-2 /LPF (Few)
[2025-06-23 11:11] LABS: INR 1.09; PT 14.4 Sec (11.4-14.6); Urine White Cell 16-20 /HPF (0-5)
[2025-06-23 11:16] LABS: ALT (SGPT) 19 U/L (0-35); AST (SGOT) 25 U/L (14-36); Albumin 4.1 g/dl (3.5-5.0); Alkaline Phosphatase 68 U/L (38-126); Blood Urea Nitrogen 13 mg/dl (7-17); Calcium 9.1 mg/dl (8.4-10.2); Carbon Dioxide 30 mmol/L (22-30); Chloride 97 mmol/L (98-107); Glucose 140 mg/dl (70-99); Potassium 3.8 mmol/L (3.5-5.1); Sodium 133 mmol/L (135-145); Total Protein 6.5 g/dl (6.3-8.2); eGFR > 60.00
[2025-06-23 11:20] LABS: COVID-19 Antigen Negative (Negative)
[2025-06-23] MEDS: ROCEPHIN 1000 MG IV (13:01)
--- NOTE | 2025-06-23 13:58 | HPS.HSE ---
Addendum entered and electronically signed by Christian Kruse MD 06/23/25 15:26:
Got a call back from another provider covering Saurabh Vásquez
Patient was treated with Augmentin on June 04 for sinus infection
She was started on prednisone course of 50 mg for 5 days on June 04 for bronchitis/pneumonitis. She called back after that course was finished as she had more symptoms and prednisone taper was ordered which she completed 2 days ago. Today she
called PCP office saying that she has symptoms of weakness, confusion and also urinary symptoms and was asked to go to the ER.
Addendum entered and electronically signed by Christian Kruse MD 06/23/25 14:33:
I saw and examined the patient.
The CHEMISTRY TUTOR or PA's note was reviewed and I agree with the note.
Comment: see my notes for changes
74-year-old with fever started 2 days ago. Per she was sick for 2 months. She was on prednisone for 12 days for and stopped 2 days ago. She was started on 2 courses of AB in April , didn't work. So started prednisone. She felt great and no
fevers. After the pred stopped , she started feeling sick again. Patient stated that she was having accidents of urine when she was standing up yesterday
Head CT-no acute changes
CT chest-no evidence of PE. Mild cardiomegaly. Stable 0.2 cm left upper lobe pulmonary nodule likely benign. or pneumonia
EKG-normal sinus rhythm, left axis deviation, RBBB
CVS: S1-S2 normal
Chest: CTA B/L
Abdomen: Soft, NT / Bowel sounds present
Extremities: No edema, normal pulses
CABLE TELEVISION INSTALLER: Non focal exam, Awake and alert and oriented
# TME
Back to baseline.
Possibly secondary to fevers
# Fevers
Infectious versus noninfectious
COVID serology negative
CT with no pneumonia
Urinalysis with possible UTI
No diarrhea
Blood cultures and urine cultures pending
Get C3, C4, sed rate, CRP, vasculitis panel, dsDNA
Peripheral smear
Infectious disease consultation
# UTI
Patient did have increased frequency
Start of ceftriaxone and wait for cultures
Xbxzlqsejaxe-wtdtyu-hr daily
# Hypothyroidism-continue levothyroxine 137 mcg
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 Last dose was 4 weeks ago. She gets it through [facility]. Due next Sunday the
.
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 Plaquenil was discontinued
# Hypertension-continue losartan
# Migraines takes Excedrin as needed
# Embnaj-jiertj-tesn as needed albuterol
# Rheumatoid arthritis-Hold methotrexate
# Depression-continue sertraline
# Chronic neck pain
# Right bundle branch block-chronic
# Lyme disease in 2015
# DVT prophylaxis-Lovenox
# CODE STATUS-Full CODE
Discussed with patient's
Called PCP office Anne Treasure is away this week. Covering Doc Will call me
time over 75 min
Part of this note was created using voice recognition system. Occasional wrong word or��sound alike� substitutions may have inadvertently occurred due to the inherent limitations of voice recognition software. If noted kindly bring it to my
attention for correction.
Original Note:
Family Physician
-
Family Physician: NOT KNOW UNKNOWN - PT DOES
Chief Complaint
-
fever and chills.
History of Present Illness
74-year-old female with PMH for depression, neuroendocrine tumor of liver, RA< RBBB, hypothyroidism, presents to the ER for evaluation of fever. patient sated fever and cough for 6 weeks. she was on two different abx with no relief in her symptoms.
she was also prescribed steroids and she gets sicks whenever they wean her off steroids. she finished the steroids two days ago and now she is will chills, fever of 101.5 and cough which is non productive. she is complaining of GOOD, dizzy . denied
syncope. denied abdominal pain,nv,d. denied dysuria or hematuria.she was noted confused last night.
Upon arrival she was noted to have WBC 22.5. Positive urinalysis. Patient received Tylenol, albuterol, ceftriaxone, normal saline in the ER. Admitting for further manage
Medical History
Past Medical History
Past Medical History: Reports Other
Additional Past Medical History:
Anemia
GI bleed
Asthma
Hypertension
Rheumatoid arthritis
Anxiety
Depression
Hypothyroidism
Thyroid nodules
Migraine headache
Chronic neck pain
Cervical/lumbar spondylosis
Osteoporosis
Colon angiectasia
Colon polyps
Basal cell cancer
Blepharitis
Right bundle branch block
Hiatal hernia
Past Surgical History: Reports Other
Additional Past Surgical History:
Tonsillectomy
Left bunionectomy
Hysterectomy
Small bowel resection
Cancers liver tumors removed from liver
Social History
Tobacco: Non-smoker
Alcohol: None
Drug: None
Personal:
Living: With Family
Family History
Family History: Not pertinent
Allergies / Home Medications
Allergies reflects when Allergies were last updated in [facility].
Home Medications with original date entered in [facility]
Allergy/Medication List:
Allergies
Allergy/AdvReac Type Severity Reaction Status Date / Time
seasonal Allergy nasal Uncoded 03/23/24 12:20
congestion
Home Medications
Lactobacillus rhamnosus GG 15 billion cell sprinkle capsule (Culturelle) 1 ea PO DAILY 05/03/17
calcium carbonate (Calcium 600) 600 mg PO BID ##0 05/03/17
losartan 100 mg tablet 100 mg PO HS ##0 05/03/17
sertraline 50 mg tablet 50 mg PO DAILY 05/03/17
ascorbic acid (vitamin C) 1,000 mg tablet (Vitamin C) 1,000 mg PO DAILY 03/23/24
cyanocobalamin (vitamin B-12) 1,000 mcg tablet (Vitamin B-12) 1,000 mcg PO DAILY 03/23/24
folic acid 1 mg tablet 1 mg PO DAILY 03/23/24
levothyroxine 137 mcg tablet 137 mcg PO DAILY 03/23/24
methotrexate sodium 2.5 mg tablet 17.5 mg PO TH Autoimmune Disorder 03/23/24
multivitamin 1 tab PO DAILY 03/23/24
acetaminophen 500 mg tablet (Tylenol Extra Strength) 500 mg PO DAILY Pain 06/23/25
albuterol sulfate 90 mcg/actuation aerosol inhaler 2 puff inhalation Q4HPRN PRN SHORTNESS OF BREATH 06/23/25
oytnqaw-rzolyloozgdnr-xrwbtttb 250 mg-250 mg-65 mg tablet (Excedrin Migraine) 1 tab PO Q6H PRN MIGRAINE 06/23/25
estradiol 10 mcg vaginal tablet (Yuvafem) 10 mcg vaginal MOTH 06/23/25
lanreotide 120 mg/0.5 mL subcutaneous syringe 120 mg SC MONTHLY Cancer 06/23/25
Review of Systems
-
Constitutional: Reports Fever, Fatigue and Chills
EENT: Reports No Symptoms
Respiratory: Reports Cough
Cardiac: Reports No Symptoms
Abdomen/GI: Reports No Symptoms
: Reports No Symptoms
Musculoskeletal: Reports No Symptoms
Skin: Reports No Symptoms
Neurological: Reports No Symptoms
Endocrine: Reports No Symptoms
Hematologic/Lymphatic: Reports No Symptoms
Psych: Reports No Symptoms
Physical Exam
Vital Signs
Vital Signs
Temp Pulse Resp BP Pulse Ox
98.2 F 104 18 126/57 93
06/23/25 11:52 06/23/25 09:10 06/23/25 09:10 06/23/25 11:00 06/23/25 11:30
Physical Exam
General: Well Developed, Well Nourished and No Apparent Distress
HEENT: NormoCephalic, Moist mucous membranes and Atraumatic
Respiratory: Clear
Cardiac: S1/S2 and Regular Rhythm; No Murmur or Rub
GI: Soft, Non Tender, Non Distended and Normal Bowel Sounds; No Organomegaly
Rectal: Deferred by Provider
Musculoskeletal: No Clubbing, No Cyanosis and No Edema
Skin: No Rash
Neuro: AO x 3 and Nonfocal/grossly intact
Psych: Calm
Laboratory Results
-
06/23/25 10:18
06/23/25 10:18
Laboratory Results
PT 14.4 Sec (11.4-14.6) 06/23/25 10:18
INR 1.09 06/23/25 10:18
Lactic Acid 1.4 mmol/L (0.7-2.0) 06/23/25 10:18
Total Bilirubin 1.1 mg/dl (0.2-1.3) 06/23/25 10:18
AST 25 U/L (14-36) 06/23/25 10:18
ALT 19 U/L (0-35) 06/23/25 10:18
Alkaline Phosphatase 68 U/L (38-126) 06/23/25 10:18
Data Reviewed
-
Diagnostic Radiology: Report Reviewed by me
CT Scan: Report Reviewed by me
Lab Data: Labs Reviewed by me
Impression/Plan
-
# Metabolic encephalopathy likely secondary to urinary tract infection
- Leukocytosis likely from steroid
- CT head with no acute finding
- Blood culture sent from ER
- IV ceftriaxone continued
- Urine culture pending
-ordered lyme, YANG, C3 and 4
-ESR and CRP pending.
-ID consulted.
#cough likely viral
- Patient was on steroid
- CT with no PE or pneumonia.Suspected mild cardiomegaly, new in the interval since prior study.Stable 0.2 cm left upper lobe pulmonary nodule, likely benign.
- Mucinex
#Hypertension
-Losartan continue with hold parameters
#Neuroendocrine metastatic tumor
-lanreotide as outpatient
#Depression
-Sertraline continue
#Hypothyroidism
-Levothyroxine continue
#Rheumatoid arthritis
-on methotrexate as outpatient
#DVT Prophylaxis
-Lovenox
#CODE status
-full code
[2025-06-23] MEDS: TYLENOL 650 MG PO ×2 (15:36→22:52)
--- NOTE | 2025-06-23 16:39 | CON.ID ---
Consultation
-
Date/Time Consultation Requested: May 23, 20251717
Date/Time Consultation Performed: May 23, 2025 170
Requesting Provider: AUTUMN Llamas
Performing Provider: Dr. Emily Crow
Reason for Consultation: Fever and cough x 6 weeks
Chief Complaint / Past History
Chief Complaint
Fevers
History of Present Illness
74-year-old female with history of neuroendocrine/carcinoid tumor with metastases to the liver on monthly lanreotide, rheumatoid arthritis on methotrexate, asthma, who presented to the ER today due to temperature up to 103 and recurrence of cough.
She reports 6 weeks history of fever and dry cough. In mid May, her PCP placed her on steroid x 5d and Augmentin days with resolution of the fever and cough. However after she completed the steroid, fever and cough returned. She was then placed
on a longer tapering course of steroid which she completed 2 days ago. The fever recurred and therefore she came to the hospital. Patient also noted to be confused doing febrile episode. She c/o constant GOOD. + sweats. No sinus congestion/sore
throat. No SOB. No chest pain. No N/V/Abd pain/D. No rash. No recent dental work. No worsening joint pains. No ill contacts. No travel. No TB risk factors. Has 1 dog. She does garden and spends time outdoors. No previous urine sxs until yesterday
developed urinary frequency.
In the ER temperature 103.2. White count of 22.5. Chest CT no PE, no infiltrates. UA + nitrite, 1+ LE, 16-20 wbc.. Ucx pending. Sars neg. Flu neg.
Past History
Additional Past Medical History:
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
Rheumatoid arthritis on methotrexate
hx KAMILAH
Hypothyroidism
Hypertension
Depression
Migraine headaches
Asthma
History of GI bleed
Additional Past Surgical History:
Carcinoid small bowel resection
Metastatic liver tumor resection
Hysterectomy
Allergy History:
seasonal Allergy (Uncoded 03/23/24 12:20)
nasal congestion
Medications Reviewed: Yes
Current Antibiotics:
Ceftriaxone
Social History
Tobacco: Non-Smoker
Alcohol: None
Drug: None
Personal:
Living: With Family
Review of Systems
Review of Systems
General: Fever, Chills and Change in Appetite
Cardiovascular: Negative Chest Pain, Dyspnea or Edema
Respiratory: Cough; Negative Sputum Production
Gasteroenterology: Negative Nausea, Vomiting or Diarrhea
Genital / Urological: Negative Flank Pain
Endocrine: Weakness and Fatigue
Musculoskeletal: Negative Myalgias
Skin / Hair / Nails: Negative Rash
Neurological: Negative Dizziness
All systems: All other systems were reviewed and were negative
Vital Signs
Temp Pulse Resp BP Pulse Ox
98.2 F 104 18 126/57 93
06/23/25 11:52 06/23/25 09:10 06/23/25 09:10 06/23/25 11:00 06/23/25 11:30
Selected Entries
06/23/25
09:10 06/23/25
10:30
Temp 101.2 F H 103.2 F H
Physical Exam
Physical Exam
Constitutional: No Acute Distress and Comfortable
Head: Other (No frontal or maxillary sinus tenderness)
Eyes: No Conjunctival Hemorrhage and Sclera Anicteric
Pharynx: Benign
Oral: No Thrush
Cardiovascular: S1/S2 (tachycardic)
Pulmonary: Clear; Negative Wheezes
Gastrointestinal: Soft, Non Tender, Non Distended and Normal Bowel Sounds
Genito-Urinary: Negative Suprapubic Tenderness or CVA Tenderness
Extremities: Negative Edema
Musculoskeletal: Negative Joint Swelling, Joint Effusion or Spinal Tenderness
Neurological: AO x 3; Negative Meningeal Signs
Lab / Diagnostic Study Results
06/23/25 10:18
06/23/25 10:18
Abs Immat Gran (auto) 0.2 10^3/uL (0-0.05) H 06/23/25 10:18
Absolute Neuts (auto) 18.5 10^3/uL (1.4-6.5) H 06/23/25 10:18
Absolute Lymphs (auto) 0.6 10^3/uL (1.2-3.4) L 06/23/25 10:18
Absolute Monos (auto) 3.1 10^3/uL (0.1-0.6) H 06/23/25 10:18
Absolute Basos (auto) 0.1 10^3/uL (0-0.2) 06/23/25 10:18
Immature Gran % 1.0 % (0-0.5) H 06/23/25 10:18
Neutrophils % 82.2 % (42.2-75.2) H 06/23/25 10:18
Lymphocytes % 2.6 % (20.5-51.1) L 06/23/25 10:18
Monocytes % 13.8 % (1.7-9.3) H 06/23/25 10:18
Eosinophils % 0.1 % (0-6) 06/23/25 10:18
Basophils % 0.3 % (0-2) 06/23/25 10:18
PT 14.4 Sec (11.4-14.6) 06/23/25 10:18
INR 1.09 06/23/25 10:18
Lactic Acid Cancelled 06/23/25 13:45
Ur Squamous Epith Cells 0-2 /LPF (Few) 06/23/25 10:18
Microbiology Results
Micro:
06/23/25 13:00 Blood Culture - Pending
Blood/Venous
06/23/25 10:18 Influenza Types A & B (YULIA) - Final
Nasal Swab Negative for Influenza A & B, NAAT
Negative results must be combined with clinical observations
and patient history.
Nucleic Acid Amplification test (NAAT)performed on the
[employer] NOW platform.
06/23/25 10:18 Blood Culture - Pending
Blood/Venous
06/23/25 10:18 Urine Culture - Pending
Urine
06/23/[address]: No acute intracranial abnormality.
06/23/[address]: No evidence of central pulmonary embolism or findings to suggest pneumonia. Suspected mild cardiomegaly, new in the interval since prior study. Stable 0.2 cm left upper lobe pulmonary nodule, likely benign.
Assessment / Plan
# Fever and cough x 6 weeks, steroid responsive, suggestive of inflammatory condition
# Leukocytosis, recently completed steroid
# Suspect current acute symptomatic UTI
# Confusion during febrile episode, not unusual
# hx metastatic neuroendocrine tumor on monthly lanreotide
# RA on MTX
- CT chest neg.
- Await blood cx's
- If blood cx's neg, CT a/p
- Can continue ceftriaxone for suspected UTI.
[2025-06-23 18:42] LABS: C-Reactive Protein 157.40 mg/L (0.0-10.00)
--- NOTE | 2025-06-23 20:08 | PTCARENOTE ---
Pt arrived onto floor @2007. Pt AAOx3 and able to walk into room without assistance. Pt with no complaints of pain or SOB at this time. Pt oriented to room and call sahu; will continue to monitor
[2025-06-23] MEDS: COZAAR 100 MG PO (22:14)
[2025-06-23] MEDS: MUCINEX 600 MG PO (22:14)
[2025-06-23] MEDS: LOVENOX 40 MG SC (22:14)
[2025-06-23] MEDS: OSCAL CAL 500 500 MG PO (22:15)
[2025-06-24] MEDS: SYNTHROID 137 MCG PO (04:33)
[2025-06-24] MEDS: TYLENOL 650 MG PO ×2 (04:33→08:39)
[2025-06-24 07:00] VITALS: BP 122/60
[2025-06-24] MEDS: VITAMIN B-12 1000 MCG PO (08:39)
[2025-06-24] MEDS: FOLVITE 1 MG PO (08:39)
[2025-06-24] MEDS: VISBIOME 1 CAP PO (08:39)
[2025-06-24] MEDS: ZOLOFT 50 MG PO (08:40)
[2025-06-24] MEDS: MUCINEX 600 MG PO ×2 (08:40→20:52)
[2025-06-24] MEDS: OSCAL CAL 500 500 MG PO ×2 (08:40→20:52)
--- NOTE | 2025-06-24 10:41 | CM ---
Initial assessment completed. Patient is a 74-year-old female with PMH for depression, neuroendocrine tumor of liver, RA< RBBB, hypothyroidism, presents to the ER for evaluation of fever.
Patient resides w/ her daughter, son in law and two grandchildren in a multi-level home, 2 steps to enter. Patient is independent w/ ambulation and ADLs. Denies DME, SNF, HC hx. Patient reports PCP Anne Amanda, pharmacy [facility], confirms
prescription coverage. CM will continue to follow for all discharge planning needs.
Plan: Anticipate home, no needs
[2025-06-24] MEDS: STERILE WATER FOR INJECTION 10 ML IV (11:12)
[2025-06-24] MEDS: MOTRIN 200 MG PO (11:12)
[2025-06-24] MEDS: ROCEPHIN 1000 MG IV (11:13)
[2025-06-24 11:25] LABS: Hematocrit 35.3 % (37.0-47.0); Hemoglobin 11.9 g/dL (12.0-16.0); Mean Corp Hgb Conc. 33.7 g/dL (33.0-37.0); Mean Corpuscular Volume 91.5 fL (81.0-99.0); Platelet Count 191 10^3/uL (130-400); Red Cell Dist. Width 13.4 % (11.5-14.5)
--- NOTE | 2025-06-24 11:28 | W.PN.ID1 ---
Date of Service
Date of Service: June 24, 2025
Today's Communication
See below.
Assessment / Plan
# Symptomatic GNR UTI
# Fever
# Leukocytosis
- Bcx's neg to date
- Ucx GNR
- Continue ceftriaxone.
# Recent Fever and cough x 6 weeks, steroid responsive, suggestive of inflammatory condition vs drug reaction (Humira)
# RA on MTX and recently received first dose Humira -> then onset of the fever/cough
- her Healthcare Administrator aware. Humira on hold
- CT chest neg
# hx metastatic neuroendocrine tumor on monthly lanreotide
# Conditions prior to admission:
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
Rheumatoid arthritis on methotrexate
hx KAMILAH
Hypothyroidism
Hypertension
Depression
Migraine headaches
Asthma
History of GI bleed
Additional Past Surgical History:
Carcinoid small bowel resection
Metastatic liver tumor resection
Hysterectomy
Chief Complaint
-: Fever
Subjective / Review of Systems
c/o GOOD. No chills. Urine sxs resolved
Vital Signs / Physical Exam
Vital Signs
Vital Signs
Temp Pulse Resp BP Pulse Ox
98.1 F 78 20 122/60 98
06/24/25 07:00 06/24/25 07:00 06/24/25 07:00 06/24/25 07:00 06/24/25 07:00
Physical Exam
Constitutional: No Acute Distress and Comfortable
Head: Other (No frontal or maxillary sinus tenderness)
Eyes: No Conjunctival Hemorrhage and Sclera Anicteric
Cardiovascular: Regular Rate and S1/S2
Pulmonary: Clear
Gastrointestinal: Soft, Non Tender, Non Distended and Normal Bowel Sounds
Genito-Urinary: Negative CVA Tenderness
Extremities: Negative Edema
Musculoskeletal: Negative Spinal Tenderness
Neurological: AO x 3
Objective Data
Lab Data
Lab Results
06/24/25 08:25
06/23/25 10:18
ESR Cancelled 06/23/25 14:25
PT 14.4 Sec (11.4-14.6) 06/23/25 10:18
INR 1.09 06/23/25 10:18
Lactic Acid Cancelled 06/23/25 13:45
Total Bilirubin 1.1 mg/dl (0.2-1.3) 06/23/25 10:18
AST 25 U/L (14-36) 06/23/25 10:18
ALT 19 U/L (0-35) 06/23/25 10:18
Alkaline Phosphatase 68 U/L (38-126) 06/23/25 10:18
C-Reactive Protein 157.40 mg/L (0.0-10.00) H 06/23/25 10:18
Most recent labs reviewed.
Micro Results:
06/23/25 10:18 Urine Culture - Preliminary
Urine Gram negative bacilli
06/23/25 10:18 Blood Culture - Preliminary
Blood/Venous No Growth in 24 hours- Final report to follow
06/23/25 18:30 Blood Parasites Smear - Preliminary
Blood/Venous
06/23/25 13:00 Blood Culture - Pending
Blood/Venous
06/23/25 10:18 Influenza Types A & B (YULIA) - Final
Nasal Swab Negative for Influenza A & B, NAAT
Negative results must be combined with clinical observations
and patient history.
Nucleic Acid Amplification test (NAAT)performed on the
[employer] platform.
06/23/[address]: No acute intracranial abnormality.
06/23/[address]: No evidence of central pulmonary embolism or findings to suggest pneumonia. Suspected mild cardiomegaly, new in the interval since prior study. Stable 0.2 cm left upper lobe pulmonary nodule, likely benign.
--- NOTE | 2025-06-24 12:14 | W.PN.HOSP.TC ---
Today's Communication/Plan
-
cont ceftriaxone
Assessment / Plan
Assessment / Plan
74yo F with PMHX of AIHA, RA, carcinoid tumor, hypothyroidism, migraine, asthma, HTN, Hx of carcinoid liver rejection, hsterectomy developed fever after fist Humira infusion appr 6 weeks ago, that were treated with empiric Abx and courses of
steroids by PCP, was resolving on steroids but reoccuring after stopping them. Found UTI
A/P:
#Recurrent fever, concern for UTI
Ucx with GNB
ID follows
Ceftriaxone
Bcx pending
Blood parasite screen pending
Lyme pending
COVID-[address] chest: No evidence of central pulmonary embolism or findings to suggest pneumonia
#Stable 0.2 cm left upper lobe pulmonary nodule
likely benign
Monitoring as outpatient advised with PCP
#Hx of AIHA
#RA
cont home meds
check HARMEET, dsDNA Ab, complement, ANCA Ab
Will attempt to discuss with manager cardiovascular if eventually needs steroids to be reintroduced
#COPD not in exacerbation
#Migraine headaches
#Hx of carcinoid
#Essential HTN
cont home meds
DVT ppx on lovenox
Full code
I have spent at least 57min reviewing chart, test results, communication with consultants and providing direct patient care
Anticipated Discharge: > 48 hours
Subjective/Interval History
-
Date of Service: June 24, 2025
Objective Data
-
Labs:
Laboratory Results
06/24/25 06/24/25
07:28 08:25
WBC Cancelled 21.4 H
Hgb Cancelled 11.9 L
Hct Cancelled 35.3 L
Plt Count Cancelled 191 D
Vital Signs:
Vital Signs
Temp Pulse Resp BP Pulse Ox
98.1 F 78 20 122/60 98
06/24/25 07:00 06/24/25 07:00 06/24/25 07:00 06/24/25 07:00 06/24/25 07:00
I&O
06/23/25 06/24/25 06/25/25
06:59 06:59 06:59
Intake Total 0 / 0
Balance 0 / 0
Review of Systems
-
History Source: Patient
All other systems: Reviewed and negative
Physical Exam
-
General: No Apparent Distress and Comfortable
Respiratory: Clear to Auscultation
GI: Soft, Nontender and Nondistended
Skin: Warm; Negative Rash
Neuro: Awake, Alert, Oriented and AO x 3
Psych: Calm
[2025-06-24 15:00] VITALS: BP 127/65
[2025-06-24] MEDS: LOVENOX 40 MG SC (16:58)
[2025-06-24] MEDS: TIGAN 200 MG IM (17:41)
[2025-06-24] MEDS: BENADRYL 12.5 MG IV (17:41)
[2025-06-24] MEDS: COZAAR 100 MG PO (20:52)
[2025-06-24 22:40] VITALS: BP 146/84
[2025-06-24 23:47] VITALS: BP 146/84
[2025-06-25] MEDS: TYLENOL 650 MG PO (05:25)
[2025-06-25] MEDS: SYNTHROID 137 MCG PO (05:25)
[2025-06-25 06:36] LABS: Hematocrit 37.5 % (37.0-47.0); Hemoglobin 12.3 g/dL (12.0-16.0); Mean Corp Hgb Conc. 32.8 g/dL (33.0-37.0); Mean Corpuscular Volume 91.9 fL (81.0-99.0); Nucleated Red Blood Cells % 0 %; Platelet Count 256 10^3/uL (130-400); Red Cell Dist. Width 13.4 % (11.5-14.5)
[2025-06-25 06:44] LABS: ALT (SGPT) 19 U/L (0-35); AST (SGOT) 23 U/L (14-36); Albumin 3.6 g/dl (3.5-5.0); Alkaline Phosphatase 69 U/L (38-126); Blood Urea Nitrogen 10 mg/dl (7-17); Calcium 8.9 mg/dl (8.4-10.2); Carbon Dioxide 28 mmol/L (22-30); Chloride 103 mmol/L (98-107); Estimated Creatinine Clearance 65 ml/min; Glucose 126 mg/dl (70-99); Potassium 4.3 mmol/L (3.5-5.1); Sodium 138 mmol/L (135-145); Total Protein 6.1 g/dl (6.3-8.2); eGFR > 60.00
[2025-06-25 07:00] VITALS: BP 133/75
[2025-06-25] MEDS: ZOLOFT 50 MG PO (07:27)
[2025-06-25] MEDS: FOLVITE 1 MG PO (07:28)
[2025-06-25] MEDS: VISBIOME 1 CAP PO (07:28)
[2025-06-25] MEDS: MUCINEX 600 MG PO (07:28)
[2025-06-25] MEDS: VITAMIN B-12 1000 MCG PO (07:28)
[2025-06-25] MEDS: OSCAL CAL 500 500 MG PO (07:28)
--- NOTE | 2025-06-25 09:05 | PN.CDI ---
Addendum entered and electronically signed by Adam Daniel MD 06/26/25 07:15:
No clinical sepsis on admission
Original Note:
CDI
- -
CDI:
Physician Documentation Request
Admit Date: 06/23/25 15:11
Dear Doctor Fredy,
Patient admitted for UTI.
06/24 Hospitalist PN: 'Recurrent fever, concern for UTI, Ucx with GNB, ID follows, Ceftriaxone'
Laboratory Tests
06/23/25 06/24/25
10:18 08:
WBC 22.5 H 21.4 H
06/23/25
09:10 06/23/25
10:30
Temp 101.2 F H 103.2 F H
06/23/25
09:10
Pulse 104
Please clarify which of the following most accurately describes the status of the patient's infection:
Sepsis, POA
- Systemic manifestations of infection, with 2 or more SIRS criteria which include:
- Fever >100.9 degrees F or hypothermia < 96.8 degrees F
- Leukocytosis - WBC > 12,000 or leukopenia - WBC < 4,000 or > 10% bands
- Tachycardia > 90 beats per minute
- Tachypnea - RR > 20 breaths per minute or PaCO2 , 32mmHg
Source: Merck Manual 2012
- Indicate the known or suspected organism
- Indicate the known or suspected underlying infection, such as UTI, pneumonia or cellulitis
- Indicate if a suspected bacterial infection of unknown source
- Indicate if associated with an implanted device such as a F/C, PICC line, orthopedic hardware, etc.
Localized Infection Only, Without Systemic Illness
- indicate the site/source, such as UTI, pneumonia etc.
Other
Use of terms such as suspected, likely, concern for, or probable (associated with a specific diagnosis that is being evaluated, monitored, or treated as if it exists) are acceptable and can be coded in the inpatient setting, when documented at the
time of discharge.
Thank you,
Raisa Antoine RN, BSN
CDI Specialist
Available via [facility] text
Please use your independent medical judgment in providing your response.
--- NOTE | 2025-06-25 11:18 | W.PN.HOSP.TC ---
Addendum entered and electronically signed by Adam Daniel MD 06/25/25 13:25:
Please dont use billing under this note, use discharge summary billing instead
Original Note:
Today's Communication/Plan
-
cont ceftriaxone
Assessment / Plan
Assessment / Plan
74yo F with PMHX of AIHA, RA, carcinoid tumor, hypothyroidism, migraine, asthma, HTN, Hx of carcinoid liver rejection, hsterectomy developed fever after fist Humira infusion appr 6 weeks ago, that were treated with empiric Abx and courses of
steroids by PCP, was resolving on steroids but reoccuring after stopping them. Found UTI
A/P:
#Recurrent fever, concern for UTI
fevers resolving on Abx
Ucx with K.pneumonia
ID follows
Ceftriaxone
Bcx NTD
Blood parasite screen neg
Lyme pending
COVID-[address] chest: No evidence of central pulmonary embolism or findings to suggest pneumonia
#Stable 0.2 cm left upper lobe pulmonary nodule
likely benign
Monitoring as outpatient advised with PCP
#Hx of AIHA
#RA
cont home meds
check HARMEET, dsDNA Ab, complement, ANCA Ab and patient to follow up with grid inspector upon d/c
#COPD not in exacerbation
#Migraine headaches
#Hx of carcinoid
#Essential HTN
cont home meds
DVT ppx on lovenox
Full code
I have spent at least 37min reviewing chart, test results, communication with consultants and providing direct patient care
Anticipated Discharge: Within 24 hours
Subjective/Interval History
-
Date of Service: June 25, 2025
Objective Data
-
Labs:
Laboratory Results
06/25/25
05:26
WBC 12.5 H
Hgb 12.3
Hct 37.5
Plt Count 256 D
Sodium 138
Potassium 4.3
Chloride 103
Carbon Dioxide 28
BUN 10
Creatinine 0.6
Glucose 126 H
Calcium 8.9
Total Bilirubin 0.5
AST 23
ALT 19
Alkaline Phosphatase 69
Vital Signs:
Vital Signs
Temp Pulse Resp BP Pulse Ox
98.6 F 70 16 133/75 96
06/25/25 07:00 06/25/25 07:00 06/25/25 07:00 06/25/25 07:00 06/25/25 07:00
I&O
06/24/25 06/25/25 06/26/25
06:59 06:59 06:59
Intake Total 1620 / 1620
Balance 1620 / 1620
Review of Systems
-
History Source: Patient
All other systems: Reviewed and negative
Physical Exam
-
General: No Apparent Distress
HEENT: Normocephalic
Cardiac: Regular Rhythm
GI: Soft, Nontender and Nondistended
Skin: Warm
Neuro: Awake, Alert, Oriented and AO x 3
Psych: Calm
[2025-06-25] MEDS: ROCEPHIN 1000 MG IV (11:39)
[2025-06-25] MEDS: STERILE WATER FOR INJECTION 10 ML IV (11:39)
--- NOTE | 2025-06-25 13:02 | W.PN.ID1 ---
Date of Service
Date of Service: June 25, 2025
Today's Communication
- Can transition ceftriaxone to cephalexin 500mg po qid through 06/01/25. .
Assessment / Plan
# Symptomatic GNR UTI
# Fever resolved
# Leukocytosis improving
- Bcx's neg to date
- Ucx Klebsiella
- Can transition ceftriaxone to cephalexin 500mg po qid through 06/01/25. .
# Recent Fever and cough x 6 weeks, steroid responsive, suggestive of inflammatory condition vs drug reaction (Humira)
# RA on MTX and recently received first dose Humira -> then onset of the fever/cough
- her Javascript Developer aware. Humira on hold
- CT chest neg
# hx metastatic neuroendocrine tumor on monthly lanreotide
# Conditions prior to admission:
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
Rheumatoid arthritis on methotrexate
hx KAMILAH
Hypothyroidism
Hypertension
Depression
Migraine headaches
Asthma
History of GI bleed
Additional Past Surgical History:
Carcinoid small bowel resection
Metastatic liver tumor resection
Hysterectomy
Chief Complaint
-: Fever
Subjective / Review of Systems
GOOD gone. Feels well. Urine sxs resolved
Vital Signs / Physical Exam
Vital Signs
Vital Signs
Temp Pulse Resp BP Pulse Ox
98.6 F 70 16 133/75 96
06/25/25 07:00 06/25/25 07:00 06/25/25 07:00 06/25/25 07:00 06/25/25 07:00
Physical Exam
Constitutional: No Acute Distress and Comfortable
Head: Other (No frontal or maxillary sinus tenderness)
Eyes: No Conjunctival Hemorrhage and Sclera Anicteric
Cardiovascular: Regular Rate and S1/S2
Pulmonary: Clear
Gastrointestinal: Soft, Non Tender, Non Distended and Normal Bowel Sounds
Genito-Urinary: Negative CVA Tenderness
Extremities: Negative Edema
Musculoskeletal: Negative Spinal Tenderness
Neurological: AO x 3
Objective Data
Lab Data
Lab Results
06/25/25 05:26
06/25/25 05:26
ESR Cancelled 06/23/25 14:25
PT 14.4 Sec (11.4-14.6) 06/23/25 10:18
INR 1.09 06/23/25 10:18
Estimated Creat Clear 65 ml/min 06/25/25 05:26
Lactic Acid Cancelled 06/23/25 13:45
Total Bilirubin 0.5 mg/dl (0.2-1.3) 06/25/25 05:26
AST 23 U/L (14-36) 06/25/25 05:26
ALT 19 U/L (0-35) 06/25/25 05:26
Alkaline Phosphatase 69 U/L (38-126) 06/25/25 05:26
C-Reactive Protein 157.40 mg/L (0.0-10.00) H 06/23/25 10:18
Most recent labs reviewed.
Micro Results:
06/23/25 10:18 Blood Culture - Preliminary
Blood/Venous No Growth in 48 hours- Final report to follow
06/23/25 10:18 Urine Culture - Final
Urine Klebsiella pneumoniae
06/23/25 18:30 Blood Parasites Smear - Final
Blood/Venous
06/23/25 13:00 Blood Culture - Preliminary
Blood/Venous No Growth in 24 hours- Final report to follow
06/23/25 10:18 Influenza Types A & B (YULIA) - Final
Nasal Swab Negative for Influenza A & B, NAAT
Negative results must be combined with clinical observations
and patient history.
Nucleic Acid Amplification test (NAAT)performed on the
[employer] platform.
06/23/[address]: No acute intracranial abnormality.
06/23/[address]: No evidence of central pulmonary embolism or findings to suggest pneumonia. Suspected mild cardiomegaly, new in the interval since prior study. Stable 0.2 cm left upper lobe pulmonary nodule, likely benign.
Care Review
Plan reviewed with: Physician (Adilson)
--- NOTE | 2025-06-25 13:24 | W.DCSUMMARY ---
Discharge Summary
Discharge Data
Date of Admission: 06/23/25
Date of Discharge: 06/25/25
-
Pending Results: Yes
Additional Pending Results:
HARMEET, ANCA ab
Hospital Course
74yo F with PMHX of AIHA, RA, carcinoid tumor, hypothyroidism, migraine, asthma, HTN, Hx of carcinoid liver rejection, hsterectomy developed fever after fist Humira infusion appr 6 weeks ago, that were treated with empiric Abx and courses of
steroids by PCP, was resolving on steroids but reoccuring after stopping them. Found UTI, fevers resolved on Abx, Ucx grew cephalosporin-sensitive K.pneumonia and as per agreement with ID - can be d/con Keflex 7 days supply. Medically stable for d/c
I have spent at least 37min reviewing chart, test results, communication with consultants and providing direct patient care
Patient was managed for:
#Recurrent fever, concern for UTI
#Stable 0.2 cm left upper lobe pulmonary nodule
#Hx of AIHA
#RA
#COPD not in exacerbation
#Migraine headaches
#Hx of carcinoid
#Essential HTN
Discharge Plan
-
Patient Disposition: Home (Routine Discharge)
Discharge Diagnosis/Procedures: UTI
Diet: Regular
Driving Restrictions: As prior to admission
Others Tests: 0.2 cm left upper lobe pulmonary nodule - CT chest in 6 months with family doctor
Referrals:
Jf Martinez MD [Consulting Staff, Rheumatology] - in less than 1 week
UNKNOWN - PT DOES,NOT KNOW [Family Provider]
Prescriptions:
New
cephalexin 500 mg capsule
500 mg PO QID Qty: 32 0RF
Continued
calcium carbonate [Calcium 600] 600 mg calcium (1,500 mg) Tablet
600 mg PO BID Qty: 0
losartan 100 mg Tablet
100 mg PO HS Qty: 0
sertraline 50 MG tablet
50 mg PO DAILY
Culturelle 1 EACH capsule, sprinkle
1 ea PO DAILY
multivitamin Tablet
1 tab PO DAILY
levothyroxine 137 mcg Tablet
137 mcg PO DAILY
ascorbic acid (vitamin C) [Vitamin C] 1,000 mg Tablet
1,000 mg PO DAILY
cyanocobalamin (vitamin B-12) [Vitamin B-12] 1,000 mcg Tablet
1,000 mcg PO DAILY
methotrexate sodium 2.5 mg Tablet
17.5 mg PO TH
folic acid 1 mg Tablet
1 mg PO DAILY
acetaminophen [Tylenol Extra Strength] 500 mg Tablet
500 mg PO DAILY
albuterol sulfate 90 mcg/actuation HFA aerosol inhaler
2 puff INHALATION Q4HPRN PRN (Reason: SHORTNESS OF BREATH)
Excedrin Migraine 250-250-65 mg Tablet
1 tab PO Q6H PRN (Reason: MIGRAINE)
lanreotide 120 mg/0.5 mL syringe
120 mg SC MONTHLY
estradiol [Yuvafem] 10 mcg tablet
10 mcg VAGINAL MOTH
Discharge Orders:
Discharge Patient (As Directed); Ordered 06/25/25
Ordered By: Adam Daniel
Discharge Date and Time
Print Language: CROATIAN
--- NOTE | 2025-06-25 13:58 | CM ---
Chart reviewed. Patient will d/c home today
IMM verbally reviewed, copy provided, copy on chart
No CM needs at this time
Plan: Home, no needs
[2025-06-25 14:16] VITALS: BP 128/67
[2025-06-25 15:31] LABS: Lyme Antibody Screen, EIA Negative (Negative)
[2025-06-26 13:59] LABS: ANA, IgG Reflex to HEp-2 None Detected (None Detected)
[2025-06-26 20:25] LABS: Serine Protease-3, IgG 0 AU/mL (0-19)
[2025-06-27 11:20] LABS: Lyme Disease DNA by PCR Not Detected; Lyme Source Serum
[2025-06-27 21:42] LABS: ds-DNA Ab, IgG Reflex To Titer 8 IU (0-24)
== END 2025-06-25 15:44 | disposition home or self-care (01) | DRG 689 ==
LOC: 4 WEST ACU 15:11
PROVIDERS: Registered Nurse; ADMITTING PHYSICIAN Hospitalist; ATTENDING PHYSICIAN Internal Medicine; CONSULT PHYSICIAN Internal Medicine Infectious Disease; EMERGENCY PHYSICIAN Emergency Medicine
DX: N39.0 Urinary tract infection, site not specified (principal); G92.8 Other toxic encephalopathy; C7B.02 Secondary carcinoid tumors of liver; D59.11 Warm autoimmune hemolytic anemia; R32 Unspecified urinary incontinence; J44.9 Chronic obstructive pulmonary disease, unspecified; I10 Essential (primary) hypertension; G89.29 Other chronic pain; I45.10 Unspecified right bundle-branch block; M54.2 Cervicalgia; E03.9 Hypothyroidism, unspecified; G43.909 Migraine, unspecified, not intractable, without status migrainosus; J98.4 Other disorders of lung; R91.1 Solitary pulmonary nodule; M06.9 Rheumatoid arthritis, unspecified; F32.A Depression, unspecified; M81.0 Age-related osteoporosis without current pathological fracture; D64.9 Anemia, unspecified; F41.9 Anxiety disorder, unspecified; E04.2 Nontoxic multinodular goiter; M47.816 Spondylosis without myelopathy or radiculopathy, lumbar region; B96.1 Klebsiella pneumoniae [K. pneumoniae] as the cause of diseases classified elsewhere; D72.829 Elevated white blood cell count, unspecified; M47.812 Spondylosis without myelopathy or radiculopathy, cervical region; K44.9 Diaphragmatic hernia without obstruction or gangrene; Z79.890 Hormone replacement therapy; Z79.631 Long term (current) use of antimetabolite agent; Z86.19 Personal history of other infectious and parasitic diseases; Z86.0100 Personal history of colon polyps, unspecified; Z87.19 Personal history of other diseases of the digestive system; Z85.060 Personal history of malignant carcinoid tumor of small intestine; Z85.828 Personal history of other malignant neoplasm of skin; Z90.710 Acquired absence of both cervix and uterus; Z11.52 Encounter for screening for COVID-19
CPT/HCPCS: 70450; 71275; 80053; 81003; 81015; 83516; 83605; 85025; 85027; 85610; 85652; 86038; 86140; 86160; 86225; 86618; 87015; 87040; 87077; 87086; 87186; 87207; 87476; 87502; 87811; 93005; 94640; 96361; 96374; 99285; Q9967

== ENCOUNTER → 2025-07-22 09:55 | Outpatient (REF) | payer OTHER, SELFPAY | LOC: PAVMRI 09:55 | PROVIDERS: ATTENDING PHYSICIAN Physician Assistant; FAMILY PHYSICIAN Nurse Practitioner Adult Health | DX: M54.16 Radiculopathy, lumbar region (principal) | CPT/HCPCS: 72148 ==

== ENCOUNTER → 2025-08-20 15:55 | Outpatient (REF) | payer OTHER, SELFPAY | LOC: RCS 15:55 | PROVIDERS: ATTENDING PHYSICIAN Nurse Practitioner Adult Health | DX: I10 Essential (primary) hypertension (principal); I51.7 Cardiomegaly | CPT/HCPCS: 93306 ==